=== PATIENT | female | born 1985 | race Caucasian/White ===

== ENCOUNTER 2020-01-25 14:54 | Emergency (ER) | payer BC, SELFPAY ==
--- NOTE | 2020-01-25 14:57 | ECG_ITS ---
Measurements Intervals [place] Rate: 79 P: 37 WV: 130 QRS: 23 QRSD: 94 T: 11 QT: 370 QTc: 424 Interpretive Statements SINUS RHYTHM POSSIBLE LEFT ATRIAL ENLARGEMENT BORDERLINE ECG Electronically Signed On 01-25-2020 16:03:49 CDT by Ady Milton D.O.
[2020-01-25 15:03] VITALS: BP 136/75; PULSE 100; RESP 18; TEMP 37.1; O2SAT 99
[2020-01-25 16:03] LABS: Basophils Percent Auto 0.3 % (0.2-1.2); Eosinophils Absolute Auto 0.2 K/mm3 (0-0.3); Eosinophils Percent Auto 1.3 % (0-4.4); Hemoglobin 11.9 g/dL (12.0-15.0); Immature Granulocyte Absolute 0.15 K/mm3 (0.00-0.031); Immature Granulocyte Percent A 1.3 % (0-0.5); Lymphocytes Absolute Auto 1.77 K/mm3 (0.9-3.2); Lymphocytes Percent Auto 15.3 % (18.3-44.2); Mean Corpuscular Hemoglobin 29.7 pg (26-34); Mean Corpuscular Volume 87.3 fl (80-100); Mean Platelet Volume 11.8 fl (7.4-10.4); Monocytes Absolute Auto 0.8 K/mm3 (0.1-0.6); Monocytes Percent Auto 6.9 % (2.6-8.5); Neutrophils Absolute Auto 8.6 K/mm3 (1.3-6.7); Neutrophils Percent Auto 74.9 % (45.5-73.1); Platelet Count Result 199 k/mm3 (150-375); Red Blood Count 4.01 M/mm3 (4.2-5.4); White Blood Count 11.6 K/mm3 (4.5-10.0)
[2020-01-25 16:14] LABS: Prothrombin Time 13.2 Seconds (11.1-14.7)
[2020-01-25 16:15] LABS: Partial Thromboplastin Time 28.2 SECONDS (22.3-36.8)
[2020-01-25 16:18] LABS: Anion Gap 11.8 mmol/L (7-16); Blood Urea Nitrogen 9 mg/dL (7-17); Calcium 8.8 mg/dL (8.4-10.2); Carbon Dioxide 24 mmol/L (22-30); Chloride 104 mmol/L (98-107); Estimated CRCL calculation 148 ml/min; Estimated Glomerular Filt Rate > 60; Glucose 124 mg/dL (65-105); Potassium 3.8 mmol/L (3.4-5.0); Sodium 136 mmol/L (137-145)
[2020-01-25 16:28] LABS: Troponin I < 0.012 ng/mL (0.000-0.034)
--- NOTE | 2020-01-25 16:29 | ED.GENADULT ---
HPI - General Adult General Chief complaint: Arrhythmia/Palpitations Stated complaint: palpitations Time Seen by Provider: 01/25/20 15:41 Source: patient and family History of Present Illness HPI narrative: 34 years old white female, 22 weeks , history of depression on sertraline which upgraded 1 week ago presents to the ED with intermittent shortness of breath, palpitation, pounding heartbeat, dizziness and lightheadedness for the last month got worse lately. 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 Patient denies any vaginal bleeding or discharge, currently patient feeling okay Related Data Home Medications Medication Instructions Recorded Confirmed PNV cmb#95-ferrous fumarate-FA 1 tablet PO DAILY 01/25/20 01/25/20 [] aspirin [Adult Low Dose Aspirin] 81 mg PO DAILY 01/25/20 01/25/20 sertraline 100 mg PO 01/25/20 Allergies Allergy/AdvReac Type Severity Reaction Status Date / Time clavulanic acid Allergy Intermediate HIVES Verified 01/25/20 15:07 amoxicillin Allergy Unknown Hives / Verified 01/25/20 15:07 Red Face Penicillins Allergy Unknown RASH,HIVES Unverified 01/25/20 15:07 Review of Systems Review of Systems: Narrative: CONSTITUTIONAL: Denies fever, chills, or sweats. EYES: Denies visual changes, redness, or discharge. ENT: Denies rhinorrhea, congestion, sore throat, or otalgia. CARDIOVASCULAR: Denies chest pain, palpitations, or edema. RESPIRATORY: Denies cough or dyspnea. GASTROINTESTINAL: Denies abdominal pain, nausea, vomiting, or diarrhea. GENITOURINARY: Denies dysuria or hematuria. SKIN: Denies rash or itching. MUSCULOSKELETAL: Denies back pain, joint pain, or myalgia. NEUROLOGIC: Denies headache, numbness, or weakness. PSYCHIATRIC: Denies anxiety or depression. PMFSH Social History Social History Gender identity (if verbalized by the patient): Female Exam Narrative: Exam Narrative: General appearance: Well-developed, well-nourished Skin: Normal color Head: Normocephalic, nontraumatic Eyes: Clear conjunctiva ENT: Oropharynx normal, ears normal, nose normal Neck: Supple, nontender Chest and respiratory: Airway patent, no respiratory distress, no accessory muscle use Heart: Regular rate/rhythm Abdomen: Soft, nontender, no organomegaly, quiet bowel sounds Vascular: Normal peripheral pulses, normal capillary refill. Musculoskeletal: Normal range of motion, nontender back Neurologic: Alert and oriented ?3, [employer] is normal as tested, no gross motor deficit Course Course Emergency Course: Stable Vital Signs Vital signs: Vital Signs Temperature 37.1 C 01/25/20 15:03 Pulse Rate 100 01/25/20 15:03 Respiratory Rate 18 01/25/20 15:03 Blood Pressure 136/75 01/25/20 15:03 Pulse Oximetry 99 01/25/20 15:03 Temperature 37.1 C 01/25/20 15:03 Pulse Rate 90 01/25/20 16:41 Respiratory Rate 18 01/25/20 15:03 Blood Pressure 113/69 01/25/20 16:41 Pulse Oximetry 99 01/25/20 15:03 Medical Decision Making [facility] Narrative Medical decision making narrative: Anxiety, panic attack is my concern. Labs, UA, orthostatic blood pressure ordered. Further plan to follow Differential Diagnosis Differential Diagnosis: Electrolyte imbalance, anxiety, depression, Vital Signs Vital Signs: Vital Signs Temperature 37.1 C 01/25/20 15:03 Pulse Rate 100 01/25/20 15:03 Respiratory Rate 18 01/25/20 15:03 Blood Pressure 136/75 01/25/20 15:03 Pulse Oximetry 99 01/25/20 15:03 Temperature 37.1 C 01/25/20 15:03 Pulse Rate 90 07
[2020-01-25 16:39] VITALS: BP 116/61; BP 117/62; PULSE 82; PULSE 87
[2020-01-25 16:41] VITALS: BP 113/69; PULSE 90
== END 2020-01-25 17:12 | disposition home or self-care (01) ==
PROVIDERS: Emergency Medicine; Emergency Provider Emergency Medicine; PCP Family Medicine
DX: O99.342 Other mental disorders complicating pregnancy, second trimester (principal); F41.9 Anxiety disorder, unspecified; Z3A.22 22 weeks gestation of pregnancy
CPT/HCPCS: 36415; 80048; 84484; 85025; 85610; 85730; 93005; 99284

== ENCOUNTER 2020-03-08 15:32 | Outpatient (RCR) | payer BC, SELFPAY ==
[2020-03-09] MEDS: RHO(D) IMMUNE GLOBULIN 300 MCG SYRINGE IM (15:40)
== END 2020-06-06 23:59 | disposition home or self-care (01) ==
LOC: ANHLAB 15:32
PROVIDERS: PCP Family Medicine; Visit Provider Obstetrics & Gynecology
DX: Z29.13 Encounter for prophylactic Rho(D) immune globulin (principal); O36.0990 Maternal care for other rhesus isoimmunization, unspecified trimester, not applicable or unspecified; Z3A.00 Weeks of gestation of pregnancy not specified
CPT/HCPCS: 36415; 85461; 90384; 96372; J2790

== ENCOUNTER 2020-03-22 13:42 | Outpatient (RCR) | payer BC, SELFPAY | END 2020-06-01 16:10 | disposition home or self-care (01) | LOC: ANHDMC 13:42 | PROVIDERS: PCP Family Medicine; Visit Provider Obstetrics & Gynecology | DX: O24.410 Gestational diabetes mellitus in pregnancy, diet controlled (principal); Z3A.00 Weeks of gestation of pregnancy not specified; Z71.89 Other specified counseling | CPT/HCPCS: G0108 ==

== ENCOUNTER 2020-04-19 17:13 | Observation (INO) | payer BC, SELFPAY ==
[2020-04-19 17:48] VITALS: BP 141/93; PULSE 96
[2020-04-19 18:00] VITALS: TEMP 36.9
[2020-04-19 18:03] VITALS: BP 135/71; PULSE 90
[2020-04-19 18:41] LABS: Basophils Percent Auto 0.3 % (0.2-1.2); Eosinophils Absolute Auto 0.1 K/mm3 (0-0.3); Eosinophils Percent Auto 0.8 % (0-4.4); Immature Granulocyte Absolute 0.08 K/mm3 (0.00-0.031); Immature Granulocyte Percent A 0.8 % (0-0.5); Immature Platelet Fraction Pct 14.6 % (0.9-11.2); Lymphocytes Absolute Auto 1.74 K/mm3 (0.9-3.2); Lymphocytes Percent Auto 17.1 % (18.3-44.2); Mean Corpuscular HGB Conc 32.3 g/dl (32-36); Mean Corpuscular Hemoglobin 27.9 pg (26-34); Mean Corpuscular Volume 86.6 fl (80-100); Mean Platelet Volume 13.2 fl (7.4-10.4); Monocytes Percent Auto 9.8 % (2.6-8.5); Neutrophils Absolute Auto 7.3 K/mm3 (1.3-6.7); Neutrophils Percent Auto 71.2 % (45.5-73.1); Platelet Count Result 197 k/mm3 (150-375); Red Blood Count 3.58 M/mm3 (4.2-5.4); White Blood Count 10.2 K/mm3 (4.5-10.0)
--- NOTE | 2020-04-19 18:42 | LDADM ---
This patient, Ellen Valentin, was admitted to OB Post [facility] on 04/19/20 at 17:13. Plans for labor, pain management and were discussed with patient. Patient/family oriented to hospital policies and general routines including ID bracelet, bed and alarms, visiting hours, pain management, procedures, bathroom and other care routines, personal items, smoking policy, room service/diet and guest tray routines, infant security routines, call light, and visiting hours. Patient/Family are encouraged to report perceived risks to care and to ask questions if they do not understand what they are told or what they should do. See OBIX for further documentation.
[2020-04-19 18:45] LABS: Add Urine Microscopic? YES; Appearance Urine Cloudy (Clear); Bacteria Urine Trace /hpf; Bilirubin Urine Negative (Negative); Blood Urine 2+ (Negative); Calcium Oxalate Crystals Urine Present /hpf; Color Urine Yellow (Yellow); Glucose Urine UA Negative (Negative); Ketones Urine Negative (Negative); Leukocyte Esterase Ur 3+ LEU/UL (Negative); Mucus Urine Few /lpf; Nitrate Urine Negative (Negative); Protein Urine 1+ mg/dL (Negative); RBC Urine >75 /hpf (0-2); Specific Grav Ur 1.027 (1.001-1.035); Squamous Epithelial Cell Urine Many /hpf (Few); Urobilinogen Urine Negative mg/dL (<2.0)
[2020-04-19 18:50] LABS: Alanine Aminotransferase 65 U/L (4-35); Albumin Level 3.1 g/dL (3.5-5.1); Alkaline Phosphatase 148 U/L (38-126); Anion Gap 6 mmol/L (8-16); Aspartate Amino Transferase 43 U/L (14-36); Bilirubin,Total 0.4 mg/dL (0.2-1.3); Blood Urea Nitrogen 10 mg/dL (7-17); Carbon Dioxide 26 mmol/L (22-30); Chloride 103 mmol/L (98-107); Estimated Glomerular Filt Rate > 60; Glucose 138 mg/dL (65-105); Potassium 3.7 mmol/L (3.4-5.0); Sodium 135 mmol/L (137-145); Uric Acid 5.4 mg/dL (2.5-7.5)
[2020-04-19] MEDS: NITROFURANTOIN MONOHYD MACROCR 100 MG CAP PO (19:49)
--- NOTE | 2020-04-23 16:12 | P.PNOB_ITS ---
OB - Triage/Final Diagnosis Visit Information Reason for evaluation: threatened labor Evaluation Laboratory results: Laboratory Tests 04/19/20 04/19/20 04/19/20 18:11 18:11 18:11 WBC 10.2 H RBC 3.58 L Hgb 10.0 L Hct 31.0 L MCV 86.6 MCH 27.9 MCHC 32.3 RDW 14.0 Plt Count 197 MPV 13.2 H Immature Gran % (Auto) 0.8 H Neut % (Auto) 71.2 Lymph % (Auto) 17.1 L [place] % (Auto) 9.8 H Eos % (Auto) 0.8 Baso % (Auto) 0.3 Lymph # (Auto) 1.74 [place] # (Auto) 1.0 H Eos # (Auto) 0.1 Baso # (Auto) 0.0 Abs Immat Gran (auto) 0.08 H Absolute Neuts (auto) 7.3 H Absolute Nucleated RBC 0.0 Nucleated RBC % 0.0 % Immature Plt Fraction 14.6 H Sodium 135 L Potassium 3.7 Chloride 103 Carbon Dioxide 26 Anion Gap 6 L BUN 10 Creatinine 0.70 Estim Creat Clear Calc Not Reportable Estimated GFR > 60 Glucose 138 H Uric Acid 5.4 Calcium 9.0 Total Bilirubin 0.4 AST 43 H ALT 65 H Alkaline Phosphatase 148 H Total Protein 6.0 L Albumin 3.1 L Urine Color Yellow Urine Appearance Cloudy H Urine pH 6.0 Ur Specific [place] 1.027 Urine Protein 1+ H Urine Glucose (UA) Negative Urine Ketones Negative Ur Blood (Man) 2+ H Urine Nitrate Negative Urine Bilirubin Negative Urine Urobilinogen Negative Leukocyte Esterase Rfl 3+ H Urine RBC >75 H Urine WBC 10-15 H Ur Squamous Epith Cells Many H Calcium Oxalate Crystal Present Urine Bacteria Trace Urine Mucus Few H
== END 2020-04-19 20:10 | disposition home or self-care (01) ==
PROVIDERS: Admitting Provider Obstetrics & Gynecology; PCP Family Medicine; Visit Provider Obstetrics & Gynecology
DX: O47.03 False labor before 37 completed weeks of gestation, third trimester (principal); Z3A.34 34 weeks gestation of pregnancy
CPT/HCPCS: 36415; 59025; 80053; 81001; 84550; 85025; 85055; 87086; A9270; G0378; G0379

== ENCOUNTER 2020-05-01 14:14 | Outpatient (RCR) | payer BC, SELFPAY ==
[2020-04-03 17:56] VITALS: BP 131/73; PULSE 91
[2020-04-10 15:55] VITALS: BP 129/68; PULSE 92
[2020-04-17 15:38] VITALS: BP 122/75; PULSE 88
[2020-04-23 16:10] VITALS: BP 135/78; PULSE 96
--- NOTE | ~2020-05-01 | US_ITS ---
EXAMINATION: US OB follow up w [facility] DATE: 04/03/2020 17:21 INDICATION: Gestational diabetes, third trimester TECHNIQUE: Real-time pelvic ultrasound was performed. The interpreting radiologist was not present fo r the study. COMPARISON: None FINDINGS: There is a single living fetus in vertex presentation. The placenta is fundal/posterior. heart rate is 131 beats per minute (bpm). The amniotic fluid index is 27.1 cm which is normal (normal range : 8.6 cm to 24.2 cm). Biophysical profile performed by the technologist: breathing (30 sec sustained breathing in 30 minutes): 2 out of 2 movement (3 gross body movements in 30 minutes): 2 out of 2 tone (one episode of omnnbeq-oiqekiiqf-wdaglav limb movement): 2 out of 2 Amniotic fluid pocket (2 cm): 2 out of 2 Total score: 8 out of 8 The following biometric data were obtained: Biparietal diameter (BPD): 8.5 cm; head circumference (HC): 31.4 cm; abdominal circumference (AC): 28 .8 cm; femur length (FL): 6.5 cm. These measurements are concordant. Estimated weight is 2209 g +/- 331 g, which correlates with the 74th percentile when 05/26/2020 is used as estimated date of delivery. As single measurements, these parameters are each equal to the following estimated gestational ages w ith ranges of +/- 2 standard deviations: BPD: 34 weeks 2 days +/- 3 weeks 1 days. HC: 35 weeks 2 days +/- 3 weeks 0 days. AC: 32 weeks 6 days +/- 3 weeks 0 days. FL: 33 weeks 5 days +/- 3 weeks 0 days. estimated gestational age based solely on measurements from this exam is 34 weeks 0 days +/- 2 weeks 3 days. IMPRESSION: 1. Single living fetus in vertex presentation. 2. Biophysical profile 8 out of 8. 3. Polyhydramnios. 4. Estimated weight is 2209 g +/- 331 g, which correlates with the 74th percentile when 020 is used as estimated date of delivery. Reviewed, dictated and finalized at location A. IMPRESSION: 1. Single living fetus in vertex presentation. 2. Biophysical profile 8 out of 8. 3. Polyhydramnios. 4. Estimated weight is 2209 g +/- 331 g, which correlates with the 74th p ercentile when 05/26/2020 is used as estimated date of delivery.
[2020-05-01 14:38] VITALS: BP 134/78; PULSE 75
== END 2020-05-10 07:40 | disposition home or self-care (01) ==
LOC: ANHOBOP 14:14
PROVIDERS: PCP Family Medicine; Visit Provider Obstetrics & Gynecology
DX: O24.419 Gestational diabetes mellitus in pregnancy, unspecified control (principal); O40.3XX0 Polyhydramnios, third trimester, not applicable or unspecified; Z3A.32 32 weeks gestation of pregnancy; Z3A.33 33 weeks gestation of pregnancy; Z3A.34 34 weeks gestation of pregnancy; Z3A.35 35 weeks gestation of pregnancy; Z3A.36 36 weeks gestation of pregnancy
CPT/HCPCS: 59025; 76816; 76819

== ENCOUNTER 2020-05-08 15:18 | Outpatient (CLI) | payer BC, SELFPAY ==
[2020-05-08 15:51] LABS: Hematocrit 33.5 % (37.0-47.0); Hemoglobin 10.8 g/dL (12.0-15.0); Immature Platelet Fraction Pct 17.2 % (0.9-11.2); Mean Corpuscular HGB Conc 32.2 g/dl (32-36); Mean Corpuscular Hemoglobin 27.6 pg (26-34); Mean Corpuscular Volume 85.5 fl (80-100); Mean Platelet Volume 13.6 fl (7.4-10.4); Platelet Count Result 199 k/mm3 (150-375); Red Blood Count 3.92 M/mm3 (4.2-5.4); White Blood Count 11.3 K/mm3 (4.5-10.0)
[2020-05-09 07:36] LABS: Rapid Plasma Reagin Non-Reactive (NonReactive)
== END 2020-05-08 15:19 | disposition home or self-care (01) ==
LOC: ANHLAB 15:19
PROVIDERS: PCP Family Medicine; Visit Provider Obstetrics & Gynecology
DX: Z34.93 Encounter for supervision of normal pregnancy, unspecified, third trimester (principal); Z3A.00 Weeks of gestation of pregnancy not specified
CPT/HCPCS: 36415; 85027; 85055; 86592; 86850; 86900; 86901

== ENCOUNTER 2020-05-09 09:51 | Inpatient (IN) | payer BC, SELFPAY ==
--- NOTE | 2020-05-01 14:04 | PC.NURSE ---
PATIENT STATES SHE IS GOING TO HAVE A REPEAT C/S. PATIENT STATES DR LEVY SAID IT WOULD BE ON 05/08/20.. C/S NOT ON SURGERY SCHEDULE AT TIME OF PRE-ADMIT PATIENT GIVEN REQUISITION FOR PRE-OP LAB DRAWN DAY BEFORE SURGERY PATIENT INSTRUCTED TO BE IN OB 2 HOURS BEFORE SURGERY TIME AND NOTHING BY MOUTH AFTER MIDNIGHT THE NIGHT BEFORE SURGERY--PATIENT VERBALIZED HER UNDERSTANDING
[2020-05-09] VITALS (45 sets, daily range): BP systolic 82–139; BP diastolic 47–113; PULSE 54–92; RESP 14–20; TEMP 36.2–36.8; O2SAT 96–100; BMI 45.8
--- NOTE | 2020-05-09 10:45 | LDADM ---
This patient, Ellen Valentin, was admitted to Labor/Delivery/Recovery 120 on 05/09/20 at 09:51. Plans for labor, pain management and were discussed with patient. Patient/family oriented to hospital policies and general routines including ID bracelet, bed and alarms, visiting hours, pain management, procedures, bathroom and other care routines, personal items, smoking policy, room service/diet and guest tray routines, infant security routines, and visiting hours. Patient/Family are encouraged to report perceived risks to care and to ask questions if they do not understand what they are told or what they should do. See OBIX for further documentation.
--- NOTE | 2020-05-09 10:47 | WPDANESEPPF ---
Anes - Initial Pre Proc Eval Procedure: Operation Date: 05/09/20 12:00 Proposed Procedures p Repeat Section - David Wolf MD Date/Time: 05/09/20 10:47 Surgeon: David Wolf MD Pre Op Diagnosis: Repeat C Section Patient Data Age: 34 Gender: F Height: Weight: Last Vital Signs Pulse 92 05/09/20 10:31 BP 129/87 05/09/20 10:31 Allergies Allergy/AdvReac Type Severity Reaction Status Date / Time clavulanic acid Allergy Intermediate HIVES Verified 01/25/20 15:07 amoxicillin Allergy Unknown Hives / Verified 01/25/20 15:07 Red Face Penicillins Allergy Unknown RASH,HIVES Unverified 01/25/20 15:07 Home Medications Medication Instructions Recorded Confirmed Type PNV cmb#95-ferrous fumarate-FA 1 tablet PO DAILY 01/25/20 04/19/20 History [] sertraline 100 mg PO DAILY 01/25/20 04/19/20 History glyburide 2.5 mg PO DAILY 05/01/20 05/01/20 History Patient hx anesthesia problems: none Family hx anesthesia problems: none PMFSH Past Medical History Medical History Asthma Depression Diabetes Family History Family History Father Type 2 diabetes mellitus Mother Pre-diabetes High cholesterol Grandparent Cancer Sibling Asthma Social History Social History Substance use: never Gender identity (if verbalized by the patient): Female Spiritual care concerns: No Anes - Eval Final PreProcedure Day of Procedure 05/09/20 10:47 Patient weight: obese Heart: regular rate and rhythm Lungs: clear to auscultation Airway: Mallampati scale class II Neurological: alert and oriented Last oral intake: >/= 8 hours ASA classification: III Emergent: no Anesthetic plan: proceed Anesthesia type and monitoring: regional spinal and standard monitoring Informed Consent: The patient's anesthetic plan and its attendant risks and benefits were discussed with the patient/family/POA. Questions were solicited and answers provided to the satisfaction of the patient/family/POA.
[2020-05-09] MEDS: LACTATED RINGERS 1,000 ML 125 ML IV CONT ×2 (11:16→11:51)
--- NOTE | 2020-05-09 11:57 | PM.IMHP ---
H&P: HPI History of Present Illness Date/Time: 05/09/20 11:57 Chief complaint: Repeat C Section Narrative: 34 y/o at 37 4/7 weeks here for scheduled repeat . She has A2DM and has been on glyburide 2.5mg at bedtime. Glycemic control has been OK, but she has a hard time remembering to test regularly. Has had polyhydramnios as well. Review of Systems Review of Systems: All systems reviewed & are unremarkable except as noted in HPI and below PMFSH Past Medical History Medical History (Updated 05/09/20 @ 12:02 by David Wolf MD) Asthma Depression Diabetes Family History Family History Father Type 2 diabetes mellitus Mother Pre-diabetes High cholesterol Grandparent Cancer Sibling Asthma Social History Social History Smoking status: Never smoker Substance use: never Gender identity (if verbalized by the patient): Female Spiritual care concerns: No Meds Home Medications and Allergies Home Medications Medication Instructions Recorded Confirmed Type PNV cmb#95-ferrous fumarate-FA 1 tablet PO DAILY 01/25/20 04/19/20 History [] sertraline 100 mg PO DAILY 01/25/20 04/19/20 History glyburide 2.5 mg PO DAILY 05/01/20 05/01/20 History Allergies Allergy/AdvReac Type Severity Reaction Status Date / Time clavulanic acid Allergy Intermediate HIVES Verified 01/25/20 15:07 amoxicillin Allergy Unknown Hives / Verified 01/25/20 15:07 Red Face Penicillins Allergy Unknown RASH,HIVES Unverified 01/25/20 15:07 Vital Signs Vital Signs - 24 hr 05/09/20 10:30 05/09/20 10:31 Pulse Rate 91 92 Blood Pressure 133/111 H 129/87 Exam Const: Orientation/consciousness: patient oriented x3 Other: Well-developed, well-nourished female in no acute distress. Neck: Thyroid: thyroid normal Lymphatic: no lymphadenopathy noted (in neck, axilla or inguinal nodes) Resp: Effort & Inspection: normal respiratory effort Auscultation: clear to auscultation bilaterally Cardio: Rate: regular rate Rhythm: regular rhythm Heart sounds: S1 normal heart sound present and S2 normal heart sound present GI: Other: ABD: Soft, nontender, nondistended, gravid. Vertex. NST reactive. TOCO: no contractions. : General: Yes no CVA tenderness Other: Cervix closed, thick Back/Spine/Pelvis: Back: no CVA tenderness Skin: General skin exam: normal color and no rashes or lesions noted Neuro: General: patient oriented x3 Extrem: Other: Extremities: nontender with no edema Psych: Mental Status: mental status grossly normal Affect: normal affect Assessment and Plan Assessment and plan (1) History of delivery: Code(s): Z98.891 - History of uterine scar from previous surgery Status: Acute Assessment and Plan: I offered her a repeat . Reviewed risks associated with prematurity. She understands risks of surgery to include risks of anesthesia, risks of pain, infection, bleeding, blood products, thromboembolic phenomena and damage to adjacent structures such as bowel, bladder, ureters, blood vessels and nerves. She understands all these risks and elects to proceed with repeat . (2) Gestational diabetes mellitus (GDM): Code(s): O24.419 - Gestational diabetes mellitus in , unspecified control Status: Acute (3) Polyhydramnios affecting : Code(s): O40.9XX0 - Polyhydramnios, unspecified trimester, not applicable or unspecified Status: Acute
--- NOTE | 2020-05-09 12:02 | WPDHPUPDATE1 ---
History and Physical Update Update Date/Time: 05/09/20 12:02 History and Physical has been reviewed, including an updated exam of the patient. There are NO changes in the patient's condition. Risks, benefits, and alternatives have been discussed and questions answered. Patient agrees to proceed with procedure.
[2020-05-09] MEDS: ceFAZolin 3 GM/D5W 100 ML 100 ML IVPB (12:03)
[2020-05-09 12:07] LABS: Glucose Point of Care 77 (65-105)
--- NOTE | 2020-05-09 13:26 | P.PCNOB_ITS ---
OB - Delivery Note Procedure Delivery date: 05/09/20 Procedure: Procedures Operation Date: 05/09/20 12:00 <No data on this case meets the specified criteria> Repeat low transverse delivery Delivery monitor: external FHT and external uterine Specimen: Yes (cord blood, placenta) Estimated blood loss (mL): 505 Anesthesia type: Spinal Disposition: PACU Complications: None Narrative: The patient was taken to the operating room where she was prepared and draped in the usual sterile fashion in dorsal supine position with a leftward tilt. She received cefazolin preoperatively. Spinal anesthesia was found to be adequate. A Pfannenstiel skin incision was made along the previous scar line and was carried through to the underlying layer of the fascia. The fascia was incised in the midline and the incision was extended laterally. The fascia was dissected free of the underlying rectus muscles. Dense adhesions were lysed between the anterior serosa of the uterus and the anterior pelvic wall. The rectus muscles were in the midline. The peritoneum was identified, tented up and entered sharply. The peritoneal incision was extended superiorly and inferiorly with good visualization of the bladder. The bladder b lade was placed. The vesicouterine peritoneum was identified, tented up and entered sharply. The incision was extended laterally and the bladder flap was developed. The bladder blade was replaced. The uterus was then incised sharply in a transverse fashion along the lower uterine segment. The incision was extended laterally. The infant's head was delivered atraumatically to the sterile field, followed by the body. The nose and mouth were bulb suctioned. After a delay, the cord was clamped and cut. The infant was handed off the field. Cord blood was collected. The placenta was removed manually and was passed off the field. The uterus was exteriorized and cleared of all clots and debris. The uterine incision was reapproximated using 0 Monocryl in a running, locked fashion. Excellent hemostasis resulted as did excellent reapproximation of the normal anatomy. The uterus was returned the abdomen. The pelvis was irrigated copiously with warmed normal saline. Hemaderm was applied to the bladder flap. Rigorous hemostasis was assured. The fascial layer was reapproximated using 0 Vicryl in a running fashion. The skin was closed with a running, subcuticular stitch of 4 0 Vicryl. Dermaflex was applied externally. Sponge, lap, needle and instrument counts were correct. The patient was taken to the recovery room in stable condition. The went to the nursery in s table condition. I was present and scrubbed the entire procedure. [place] Baby Date of : 05/09/20 Time of : 12:30 Weeks of gestation at delivery: 37 gender: Female Weight (pounds): 8 Weight (ounces): 8 presentation: vertex Placenta delivery description: Manual Removal and Normal Configuration cord vessel description: 3 Vessels score one minute: 9 score five minutes: 9
--- NOTE | 2020-05-09 13:30 | PM.OBDSVD ---
DS: Admitting Diagnosis Admitting Diagnosis Admitting Diagnosis: IUP at 37 4/7 weeks Prior Gestational diabetes Polyhydramnios DS: Discharge Diagnosis Discharge Diagnosis (1) Polyhydramnios affecting : Code(s): O40.9XX0 - Polyhydramnios, unspecified trimester, not applicable or unspecified Status: Acute (2) Gestational diabetes mellitus (GDM): Code(s): O24.419 - Gestational diabetes mellitus in , unspecified control Status: Acute (3) History of delivery: Code(s): Z98.891 - History of uterine scar from previous surgery Status: Acute OB - DS: Summary OB Procedures : None OB Procedures Intrapartum: OB Procedures: : None Peripartum Data Procedures: Procedures Operation Date: 05/09/20 12:00 <No data on this case meets the specified criteria> DS: Data Data Completed and Pending Pending studies at discharge: Pending at discharge 05/09/20 12:31 Surgical [PTH] Routine Labs on day of discharge: Labs from last 24 hours 05/09/20 11:57 POC Capillary Glucose 77 Discharge Plan Discharge Attending physician on discharge: David Wolf Consulting providers: Roman Frank Discharging Clinician: David Wolf Patient Disposition: Home, Self-Care Activity: may shower, may drive after 2 weeks and pelvic rest Diet: regular Wound Care Instructions: incision open to air Discharge Instructions: Education: Mom and Baby Guide Given to: Mother Follow-Up: Call your delivering provider's office for an appointment to be seen in: 4 Weeks Mom and baby should come to the [facility] for the follow-up appointment. Appointment Date/Time: May 14, 2020 at 9:00 am What to expect at your follow-up visit: Blood Pressure Check Physical Assessment Call [phone] if you are unable to keep your appointment time. BREAST CARE: * Wear a snug supportive bra. * For engorgement discomfort: Breast Feeding: * Apply warm moist washcloths * Express milk as needed to relieve engorgement * Wear loose clothing * For sore nipples: * Identify correct latch-on * Apply warm moist washcloths before and after nursing * Air dry nipples after nursing * May apply Lansinoh cream to nipples ABDOMINAL INCISION: (if applicable) * Allow incision to air dry * Do NOT use lotions for powders on your incision * When showering, allow soap and water to run over the incision, but do not wash incision EPISIOTOMY/PERINEAL CARE: * Until bleeding stops, use your niesha bottle after urinating * Change your pad frequently throughout the day *No tub baths until seen by your physician - You may shower ACTIVITY: * Rest as much as possible. * Do not exercise or lift anything heavier than your baby (such as laundry or other children.) * Avoid stairs or driving as much as possible. * Do not put anything into the vagina. No douching, tampons, or sexual activity until seen by physician. NOTIFY PHYSICIAN IF YOU HAVE ANY QUESTIONS OR IF ANY OF THE FOLLOWING SYMPTOMS OCCUR: * If your episiotomy or incision becomes red, swollen, or more painful than what you have experienced in the hospital. * If your vaginal bleeding becomes foul smelling. * If your vaginal bleeding becomes more heavy than a period or if your bleeding changes from pink to bright red. However, you may pass an occasional walnut-sized clot once or twice for the first week . * If you experience a sharp, shooting pain in you calves. * If you discover a hard, reddened area on your breast or if you experience flu-like symptoms. *Temperature of 100.4 or higher DIET: * Eat regular, well-balanced meals. * Drink plenty of fluids daily. If , drink to thirst.Call or return if temperature above 100.4? F, increased abdominal pain, in
[2020-05-09] MEDS: OXYTOCIN 30 UNITS/NS 500 ML 30 UNITS/500 ML BAG 125 UNITS IV CONT (14:00)
[2020-05-09] MEDS: MORPHINE SULFATE (*CRX) 2 MG/ML INJ 3 MG IV PUSH (15:20)
--- NOTE | 2020-05-09 15:26 | PC.NURSE ---
PT arrived on unit via stretcher accompanied by spouse and . PT taken to room 286 and transferred to bed via maxi air without difficulty. PT introductions made and plan of care discussed per post op c section, pain management, daily care activities and breast feeding. Pt oriented to room and surrounding area. Welcome packet reviewed and discussed. PT verbalized understanding of such care.
[2020-05-09] MEDS: DOCUSATE SODIUM 100 MG CAPSULE PO (16:14)
[2020-05-09] MEDS: SIMETHICONE 80 MG TAB.CHEW PO (16:14)
[2020-05-09] MEDS: HYDROcodone/acetaminophen (*CRX) 5-325 MG TABLET 1 TAB PO ×2 (16:15→20:12)
[2020-05-09] MEDS: LANOLIN (LANSINOH) 7.5 GM CREAM 1 APPLIC TOPICAL (16:15)
[2020-05-09] MEDS: SODIUM CHLORIDE 0.9% IV 1,000 ML 999 ML IV CONT (18:43)
[2020-05-09] MEDS: KCL 20 MEQ/D5/0.45% SOD CHL 1,000 ML 125 ML IV CONT (19:19)
[2020-05-09] MEDS: FUROSEMIDE INJ 40 MG/4 ML VIAL 20 MG IV PUSH (20:31)
[2020-05-10] VITALS: BP 124/69; PULSE 90; RESP 18; TEMP 36.9; O2SAT 99
[2020-05-10] MEDS: HYDROcodone/acetaminophen (*CRX) 10-325 MG TABLET 1 TAB PO ×3 (00:28→19:12)
[2020-05-10 04:00] VITALS: BP 134/60; PULSE 88; RESP 18; TEMP 37; O2SAT 100
[2020-05-10 04:49] LABS: Basophils Percent Auto 0.3 % (0.2-1.2); Eosinophils Absolute Auto 0.1 K/mm3 (0-0.3); Eosinophils Percent Auto 0.7 % (0-4.4); Hematocrit 24.7 % (37.0-47.0); Hemoglobin 7.9 g/dL (12.0-15.0); Immature Granulocyte Absolute 0.03 K/mm3 (0.00-0.031); Immature Granulocyte Percent A 0.4 % (0-0.5); Lymphocytes Absolute Auto 1.18 K/mm3 (0.9-3.2); Lymphocytes Percent Auto 15.5 % (18.3-44.2); Mean Corpuscular Hemoglobin 27.7 pg (26-34); Mean Corpuscular Volume 86.7 fl (80-100); Mean Platelet Volume 13.4 fl (7.4-10.4); Monocytes Absolute Auto 0.8 K/mm3 (0.1-0.6); Monocytes Percent Auto 9.9 % (2.6-8.5); Neutrophils Absolute Auto 5.6 K/mm3 (1.3-6.7); Neutrophils Percent Auto 73.2 % (45.5-73.1); Platelet Count Result 141 k/mm3 (150-375); Red Blood Count 2.85 M/mm3 (4.2-5.4); White Blood Count 7.6 K/mm3 (4.5-10.0)
[2020-05-10 08:05] VITALS: BP 131/73; PULSE 88; RESP 18; TEMP 36.5; O2SAT 100
[2020-05-10] MEDS: MULTIVIT/MIN/PREN/FOL AC/IRON TABLET 1 TAB PO (09:01)
[2020-05-10] MEDS: DOCUSATE SODIUM 100 MG CAPSULE PO ×2 (09:02→16:10)
[2020-05-10] MEDS: POLYSACCHARIDE IRON COMPLEX 150 MG CAPSULE PO ×2 (09:02→16:10)
[2020-05-10] MEDS: IBUPROFEN 600 MG TABLET PO ×2 (09:02→16:11)
[2020-05-10] MEDS: HYDROcodone/acetaminophen (*CRX) 5-325 MG TABLET 1 TAB PO ×2 (09:02→16:10)
[2020-05-10] MEDS: SERTRALINE HCL 50 MG TABLET PO (09:02)
--- NOTE | 2020-05-10 09:44 | WPDANLDPN2 ---
Anes-Prog Note L&D Date/Time: 05/10/20 09:44 Comfortable throughout: section Neuraxial method: spinal Epidural/Spinal procedure site: clean & non-tender Neuro status: Neuro function grossly intact. Cardiovascular status: normal Respiratory status: normal Airway patency: baseline Mental status: baseline Post-Op hydration status: normal Vital Signs: Last Vital Signs Temp 36.5 C 05/10/20 08:05 Pulse 88 05/10/20 08:05 Resp 18 05/10/20 08:05 BP 131/73 05/10/20 08:05 Pulse Ox 100 05/10/20 08:05 Pain score (VAS): 0 I/O: Intake & Output 05/09/20 05/10/20 05/10/20 23:59 07:59 15:59 Intake Total 2200 1800 Output Total 100 2350 Balance 2100 -550 Post-procedural complaints: none Patient feedback: Patient satisfied with anesthetic care.
--- NOTE | 2020-05-10 09:45 | WPDANLDNPN2 ---
Anes-Prog Note L&D-Neuraxial Date/Time: 05/10/20 09:45 Neuraxial medications: intrathecal PF morphine Opiod-related complaints: none Patient feedback: Patient satisfied with post-operative pain management.
[2020-05-10 11:40] VITALS: BP 126/65; PULSE 94; RESP 18; TEMP 36.8; O2SAT 100
--- NOTE | 2020-05-10 12:15 | PC.NURSE ---
Consulted with patient, mother reports infant has been sleepy at times. Mother reports tenderness at times with some feedings. Mother pumped and bottle fed with first child. . Reviewed infant feeding cues, frequencies, duration of feedings, feeding elimination flow sheet, and signs of adequate intake. Demonstrated stimulation techniques to wake for feeding. Several minutes to wake infant. Small amounts of formula to entice to wake and initiate suckling. Assisted with to breast. Reviewed positioning/alignment in cross cradle, holding breast in U and guided asymmetrical latch on. was able to latch correctly. nursed eagerly for short bursts followed with long pausing occasional swallowing noted. Reviewed signs of a correct latch, effective nursing and suck swallow ratio. was able to maintain latch without discomfort to mother. Nipple care reviewed. Suggested mother stimulate while feeding to keep awake and nursing effectively for increased intake and to assist with maintaining deep latch. Instructed mother to call out for RN assistance if she is unable to latch infant for feeding or she has discomfort with nursing. Instructed feeding should be initiated three hours from start of last feeding or if feeding cues are noted before. Mother voiced understanding of information shared.
--- NOTE | 2020-05-10 13:09 | PM.OBPNVD ---
OB - PN: Subj Subjective Date/time seen: 05/10/20 13:09 Narrative: Pain OK. Tolerating diet. OB - PN: Obj Data Labs CBC & Chem 7: 05/10/20 03:38 Labs: Laboratory Results - last 24 hr 05/10/20 03:38 WBC 7.6 RBC 2.85 L Hgb 7.9 L Hct 24.7 L MCV 86.7 MCH 27.7 MCHC 32.0 RDW 14.0 Plt Count 141 L MPV 13.4 H Immature Gran % (Auto) 0.4 Neut % (Auto) 73.2 H Lymph % (Auto) 15.5 L [place] % (Auto) 9.9 H Eos % (Auto) 0.7 Baso % (Auto) 0.3 Lymph # (Auto) 1.18 [place] # (Auto) 0.8 H Eos # (Auto) 0.1 Baso # (Auto) 0.0 Abs Immat Gran (auto) 0.03 Absolute Neuts (auto) 5.6 Absolute Nucleated RBC 0.0 Nucleated RBC % 0.0 % Immature Plt Fraction 12.0 H OB - PN A/P Plan Comments: A: POD#1, doing well. P: Routine care. Exam Narrative: Exam Narrative: AVSS I/O OK ABD soft, nontender, fundus firm. Incision c/d/i. EXT nontender
[2020-05-10] MEDS: SIMETHICONE 80 MG TAB.CHEW PO (16:10)
[2020-05-10 20:00] VITALS: BP 140/75; PULSE 95; RESP 16; TEMP 36.8; O2SAT 100
[2020-05-11] MEDS: HYDROcodone/acetaminophen (*CRX) 5-325 MG TABLET 1 TAB PO (04:17)
[2020-05-11] MEDS: IBUPROFEN 600 MG TABLET PO ×3 (04:17→19:21)
[2020-05-11] MEDS: MULTIVIT/MIN/PREN/FOL AC/IRON TABLET 1 TAB PO (07:18)
[2020-05-11] MEDS: SIMETHICONE 80 MG TAB.CHEW PO ×2 (07:18→19:21)
[2020-05-11] MEDS: POLYSACCHARIDE IRON COMPLEX 150 MG CAPSULE PO ×2 (07:18→17:15)
[2020-05-11] MEDS: DOCUSATE SODIUM 100 MG CAPSULE PO ×2 (07:18→17:15)
[2020-05-11] MEDS: HYDROcodone/acetaminophen (*CRX) 10-325 MG TABLET 1 TAB PO (07:18)
[2020-05-11 08:05] VITALS: BP 128/73; PULSE 91; RESP 16; TEMP 36.6; O2SAT 100
--- NOTE | 2020-05-11 12:31 | P.PNOB_ITS ---
OB - PN: Subj Subjective Date/time seen: 05/11/20 08:45 Narrative: She says the [place] doesn't seem to be doing anything. Tolerating diet. OB - PN: Obj Data Labs CBC & Chem 7: 05/10/20 03:38 OB - PN A/P Plan Comments: A: POD#2, doing well. P: Try Percocet instead of [place]. Routine care. Exam Narrative: Exam Narrative: AVSS ABD soft, nontender, fundus firm. Incision c/d/i. EXT nontender
--- NOTE | 2020-05-11 12:45 | PC.NURSE ---
Consulted with patient, mother reports she has had difficulties with latching and pain with feedings. Mother states she is able to latch with a deep latch using the football and struggles with cross cradle. Infant has been under bili lights and mother feels is struggling with latching. Advised if mother is more comfortable with football she does not need to use cross cradle. Mother would like to try. Reviewed feeding cues, frequencies, duration of feedings, feeding elimination flow sheet, and signs of adequate intake. Demonstrated stimulation techniques to wake for feeding. Assisted with to breast. Reviewed positioning/alignment in cross cradle, holding breast in U hold and guided asymmetrical latch on. Several attempts before infant was unable to latch correctly. Infant made eager attempts and not able to latch without discomfort to mother. Several positions attempted with positioning infant and mother's breasts. Mother switched to football and is able to latch infant correctly within a few attempts. nursed eagerly, with rhythmic draws draws with frequent swallowing noted. Mother denies discomfort. Reviewed signs signs of a correct latch, effective nursing and suck swallow ratio. Infant was able to maintain latch without discomfort to mother. Nipple care reviewed. Suggested to stimulate infant while feeding to keep awake and nursing effectively for increased intake and to assist with maintaining deep latch. Instructed mother to call out for RN assistance if she is unable to latch infant for feeding or she has discomfort with nursing. Instructed feeding should be initiated three hours from start of last feeding or if feeding cues are noted before. Mother voiced understanding of information shared. Report to primary RN concerning tight frenulum.
[2020-05-11] MEDS: oxyCODONE/ACETAMINOPHEN (*CRX) 5-325 MG TABLET 1 TABLET PO ×3 (13:13→21:53)
[2020-05-11] MEDS: SERTRALINE HCL 50 MG TABLET PO (13:16)
[2020-05-11 19:20] VITALS: BP 143/74; PULSE 87; RESP 16; TEMP 36.8; O2SAT 100
--- NOTE | 2020-05-11 20:27 | PC.NURSE ---
Patient to view the discharge video Mother & Baby Care, The First Two Weeks online. Patient was given the opportunity and encouraged to ask questions. Patient verbalized understanding of information shared and has been given the mother/baby guide for home reference.
[2020-05-12] MEDS: IBUPROFEN 600 MG TABLET PO ×2 (06:49→12:55)
[2020-05-12] MEDS: oxyCODONE/ACETAMINOPHEN (*CRX) 5-325 MG TABLET 1 TABLET PO ×2 (06:50→12:54)
[2020-05-12] MEDS: POLYSACCHARIDE IRON COMPLEX 150 MG CAPSULE PO (06:51)
[2020-05-12] MEDS: MULTIVIT/MIN/PREN/FOL AC/IRON TABLET 1 TAB PO (06:51)
[2020-05-12] MEDS: SERTRALINE HCL 50 MG TABLET PO (06:51)
[2020-05-12] MEDS: DOCUSATE SODIUM 100 MG CAPSULE PO (06:52)
[2020-05-12 07:00] VITALS: BP 158/84; PULSE 77; RESP 16; TEMP 36.6; O2SAT 100
--- NOTE | 2020-05-12 07:05 | PM.OBPNVD ---
OB - PN: Subj Subjective Date/time seen: 05/12/20 07:05 Patient comments: no complaints and pain well controlled baby status: doing well OB - PN: Obj Data Labs CBC & Chem 7: 05/10/20 03:38 OB - PN A/P Plan day: 3 Plan: routine care, discharge home and follow up 6 weeks (4 weeks) Time Spent With Patient Time: Total time spent is greater than 50% in coordination of care (as documented) at patient's floor/unit and/or counseling patient: Time with patient: less than 15 minutes Review of Systems Review of Systems: All systems reviewed & are unremarkable except as noted in HPI and below Exam Const: General: no acute distress Eyes: General: appearance normal, both eyes and all related structures Neck: Neck: supple and no JVD Thyroid: thyroid normal Resp: Effort & Inspection: normal respiratory effort Auscultation: clear to auscultation bilaterally Cardio: Rate: regular rate Rhythm: regular rhythm GI: Inspection: normal to inspection and incision (cdi) Percussion: Yes normal to percussion : General: Yes bladder normal to palpation External Female Exam: normal external appearance Speculum Exam - Vagina: normal vaginal discharge and No vaginal bleeding Speculum Exam - Cervix: nontender Bimanual exam- vagina & uterus: bladder normal to palpation and No Cervical tenderness present OB/external & speculum: No vaginal bleeding Skin: General skin exam: no rashes or lesions noted Extrem: General: normal to inspection and no edema Psych: Mental Status: mental status grossly normal Affect: normal affect
[2020-05-14 09:29] VITALS: BP 144/79; PULSE 72; RESP 20; TEMP 36.9; O2SAT 100
== END 2020-05-12 13:37 | disposition home or self-care (01) | DRG 788 ==
LOC: ANHLDR 13:31 → ANHOB2 05-12 12:12 → ANHLDR 05-15 07:54 → ANHOB2 05-15 07:54
PROVIDERS: Admitting Provider Obstetrics & Gynecology; PCP Family Medicine; Visit Provider Obstetrics & Gynecology
PROC: 10D00Z1 Extraction of Products of Conception, Low, Open Approach (ICD-10-PCS; CPT 59514; principal; 2020-05-09 12:00)
DX: O34.211 Maternal care for low transverse scar from previous cesarean delivery (principal); Z37.0 Single live birth; Z3A.37 37 weeks gestation of pregnancy; O24.429 Gestational diabetes mellitus in childbirth, unspecified control; O99.52 Diseases of the respiratory system complicating childbirth; J45.909 Unspecified asthma, uncomplicated; O99.344 Other mental disorders complicating childbirth; F41.8 Other specified anxiety disorders; E66.9 Obesity, unspecified; O99.214 Obesity complicating childbirth; O40.3XX0 Polyhydramnios, third trimester, not applicable or unspecified
CPT/HCPCS: 36415; 85025; 85055; 88307; A9270; J0131; J0690; J1885; J1940; J2270; J2274; J2405; J2590; J3480; J7030; J7120

== ENCOUNTER 2022-03-07 18:20 | Emergency (ER) | payer BC, SELFPAY ==
--- NOTE | ~2022-03-07 | CT_ITS ---
EXAMINATION: CTA chest PE protocol DATE: 03/08/2022 00:42 INDICATION: Dyspnea. Elevated d-dimer. TECHNIQUE: Computed tomography angiography (CTA) of the chest was performed with 100 mL Omnipaque-350 intravenous contrast timed to evaluate the pulmonary arteries. Coronal maximum intensity projection 3D-reconstructions were created by the technologist. Automated exposure control and iterative reconst ruction technique were employed. Exam dose: 695.72 mGy-cm total exam DLP. COMPARISON: 03/17/2022 portable AP chest FINDINGS: Is diagnostic contrast enhancement of the pulmonary arteries and no evidence of pulmonary e mbolism. Lungs are clear of infiltrate or consolidation. Normal heart size. No pericardial or pleural effusion. No thoracic aortic aneurysm or dissection. Normal heart size. No pericardial or pleural effusion. No hilar or mediastinal mass lesion or lymphadenopathy. Included upper abdominal structures and skeletal structures are unremarkable. IMPRESSION: No evidence of pulmonary embolism Reviewed, dictated and finalized at [facility] Reviewed, dictated and finalized at [facility].
--- NOTE | ~2022-03-07 | XR_ITS ---
EXAMINATION: XR chest 1V portable DATE: 03/07/2022 20:11 INDICATION: Shortness of breath. Epigastric pain. Asthma. TECHNIQUE: frontal view of the chest was obtained. COMPARISON: Chest radiograph dated 08/09/2015 FINDINGS: Normal lung volumes. No focal airspace opacities, pulmonary edema, pleural effusion or pneumothorax. The cardiomediastinal silhouette is normal. Visualized bones and soft tissues are unremarkable. IMPRESSION: 1. No acute cardiopulmonary disease. Reviewed, dictated and finalized at [facility].
[2022-03-07 18:29] VITALS: BP 125/67; PULSE 90; RESP 20; TEMP 36.6; O2SAT 99
[2022-03-07 18:56] LABS: Basophils Percent Auto 0.2 % (0.2-1.2); Eosinophils Absolute Auto 0.1 K/mm3 (0-0.3); Eosinophils Percent Auto 0.9 % (0-4.4); Hematocrit 37.9 % (37.0-47.0); Hemoglobin 12.3 g/dL (12.0-15.0); Immature Granulocyte Absolute 0.05 K/mm3 (0.00-0.031); Immature Granulocyte Percent A 0.4 % (0-0.5); Lymphocytes Absolute Auto 2.18 K/mm3 (0.9-3.2); Mean Corpuscular HGB Conc 32.5 g/dl (32-36); Mean Corpuscular Hemoglobin 27.6 pg (26-34); Mean Platelet Volume 10.8 fl (7.4-10.4); Monocytes Absolute Auto 0.7 K/mm3 (0.1-0.6); Monocytes Percent Auto 5.9 % (2.6-8.5); Neutrophils Absolute Auto 8.4 K/mm3 (1.3-6.7); Neutrophils Percent Auto 73.6 % (45.5-73.1); Platelet Count Result 245 k/mm3 (150-375); Red Blood Count 4.46 M/mm3 (4.2-5.4); Red Cell Distribution Width 15.3 % (11.5-14.5); White Blood Count 11.5 K/mm3 (4.5-10.0)
[2022-03-07 18:57] LABS: Appearance Urine Clear (Clear); Bilirubin Urine Negative (Negative); Blood Urine Negative (Negative); Color Urine Yellow (Yellow); Glucose Urine UA Negative (Negative); Ketones Urine Negative (Negative); Leukocyte Esterase Ur Negative LEU/UL (Negative); Nitrate Urine Negative (Negative); Protein Urine Negative (Negative); Specific Grav Ur >= 1.030 (1.001-1.035); Urobilinogen Urine 0.2 mg/dL (<2.0); pH Urine 5.5 (5.0-9.0)
[2022-03-07 19:02] LABS: Add Urine Microscopic? NO
[2022-03-07 19:05] LABS: Alanine Aminotransferase 19 U/L (6-35); Albumin Level 4.2 g/dL (3.5-5.1); Alkaline Phosphatase 67 U/L (38-126); Anion Gap 11 mmol/L (8-16); Aspartate Amino Transferase 18 U/L (14-36); Bilirubin,Total 0.3 mg/dL (0.2-1.3); Blood Urea Nitrogen 13 mg/dL (7-17); Calcium 8.6 mg/dL (8.4-10.2); Carbon Dioxide 23 mmol/L (22-30); Chloride 102 mmol/L (98-107); Estimated CRCL calculation 126 ml/min; Estimated Glomerular Filt Rate > 60; Glucose 124 mg/dL (65-110); Lipase 39 U/L (23-300); Potassium 3.7 mmol/L (3.4-5.0); Sodium 136 mmol/L (137-145)
--- NOTE | 2022-03-07 19:46 | ECG_ITS ---
Measurements Intervals [place] Rate: 82 P: 48 SC: 146 QRS: 46 QRSD: 93 T: 39 QT: 399 QTc: 467 Interpretive Statements SINUS RHYTHM BASELINE ARTIFACT- I, II, AVR NORMAL ECG COMPARED TO ECG 01/25/2020 15:07:07 NO SIGNIFICANT CHANGES Electronically Signed On 03-07-2022 20:40:06 CDT by Ady Milton D.O.
--- NOTE | 2022-03-07 19:48 | ED.ABDPAIN ---
HPI - Abdominal Pain General Chief Complaint: Abdominal Pain Stated Complaint: 8 wks preg, upper abd pain Time Seen by Provider: 03/07/22 19:35 Source: RN notes reviewed History of Present Illness HPI narrative: Patient presents emergency department from home for abdominal pain. Patient states she has had bandlike pain across her upper abdomen going around to her back for the past 3 days. Patient states that the pain is spasming in nature and last for approximately 30 seconds makes her feel short of breath like she cannot take a deep breath. Patient states she is approximately 8 weeks she is G3, P2 is followed by Dr Wolf. States she has had an ultrasound in the office showing a intrauterine she denies any lower abdominal pain she denies any vaginal bleeding or discharge. She denies any fevers or chills chest pain or any other symptoms states she is not taking medication at home for the symptoms Related Data Home Medications Medication Instructions Recorded Confirmed vit no.95-ferrous 1 tablet PO DAILY 01/25/20 04/19/20 fumarate 28 mg-folic acid 800 mcg tablet () sertraline 100 mg tablet 100 mg PO DAILY 01/25/20 04/19/20 Allergies Allergy/AdvReac Type Severity Reaction Status Date / Time clavulanic acid Allergy Intermediate HIVES Verified 03/07/22 19:38 amoxicillin Allergy Unknown Hives / Verified 03/07/22 19:38 Red Face Penicillins Allergy Unknown RASH,HIVES Verified 03/07/22 19:38 Review of Systems Review of Systems: Gen.: Denies fevers or chills ENT: Denies congestion Respiratory: Reports shortness of breath with the pain CV: Denies chest pain or palpitations GI: See HPI reports Musculoskeletal: Denies back pain or muscle pain Neuro: Denies numbness, tingling, weakness or focal weakness Skin: Denies rash Except as documented, all other systems reviewed and negative [facility] Past Medical History Medical History Asthma Depression Diabetes Family History Family History Father Type 2 diabetes mellitus Mother Pre-diabetes High cholesterol Grandparent Cancer Sibling Asthma Social History Social History Smoking status: Never smoker Substance use: never Gender identity (if verbalized by the patient): Female Spiritual care concerns: No Exam Narrative: APPEARANCE: No acute distress, nontoxic, resting in bed HEENT: Normocephalic, atraumatic, OMM RESPIRATORY: No respiratory distress, clear to auscultation bilaterally with no rhonchi wheezing or rales CARDIOVASCULAR: RRR s murmur ABDOMINAL: Soft nondistended tender palpation epigastric and right upper quadrant and left upper quadrant no tenderness right lower quadrant left lower quadrant no rebound or guarding MUSCULOSKELETAl: Moves all extremities. No clubbing, cyanosis or edema. NEURO: Awake and alert. Following commands, speech normal, no focal deficits SKIN:: Warm, dry. Normal Color PSYCHIATRIC: Normal affect/mood Course Course Emergency Course: Patient states pain is improved with GI cocktail : Discussed with Dr. Jeannine Mojica presentation work-up he recommends a D-dimer be obtained and if elevated to get a CTA of the chest if this is negative he feels patient may be discharged home with follow-up as an outpatient Discussed with patient results of workup and diagnosis. Discussed need for follow-up with primary care, proper use of medication, and reasons to return to the emergency department. Patient understands and agrees to current treatment plan discussed with patient need for return for increasing abdominal pain repeat abdominal exam is soft no surgical abdomen present no tenderness in the right lower quadrant left lower quadrant mild tenderness epigastric region Vital Signs Vital signs: Vital Signs Temperature 98 F
[2022-03-07] MEDS: FAMOTIDINE 20 MG/2 ML VIAL IV PUSH (20:01)
[2022-03-07] MEDS: MAG HYDROX/AL HYDROX/SIMETH 30 ML UDC PO (20:01)
[2022-03-07] MEDS: SODIUM CHLORIDE 0.9% IV 1,000 ML 999 ML IV CONT (20:02)
[2022-03-07 23:07] LABS: D Dimer 0.54 ug/mL (<0.48)
[2022-03-07 23:34] VITALS: BP 115/61; PULSE 77; RESP 20; O2SAT 100
== END 2022-03-08 01:48 | disposition home or self-care (01) ==
PROVIDERS: Emergency Medicine; Emergency Provider Emergency Medicine; PCP Obstetrics & Gynecology
DX: O26.891 Other specified pregnancy related conditions, first trimester (principal); R10.13 Epigastric pain; Z3A.08 8 weeks gestation of pregnancy
CPT/HCPCS: 36415; 71045; 71275; 80053; 81003; 83690; 85025; 85380; 93005; 96361; 96374; 96375; 99284; A9270; J0131; J7030; Q9967

== ENCOUNTER 2022-03-08 15:22 | Observation (INO) | payer BC, SELFPAY ==
--- NOTE | ~2022-03-08 | US_ITS ---
US abdomen limited DATE: 03/09/2022 07:21 INDICATION: Epigastric abdominal pain, vomiting TECHNIQUE: Real-time imaging of liver, pancreas, gallbladder COMPARISON: None FINDINGS: The pancreas is largely obscured by bowel gas. No hepatic space-occupying mass lesion is detected. Normal hepatopedal portal venous flow direction. No gallstones or gallbladder wall thickening or pericholecystic fluid collection. Negative sonographi c Vargas's sign. The common bile duct measures 4 mm, normal. IMPRESSION: Pancreas is obscured by bowel gas otherwise negative examination Reviewed, dictated and finalized at [facility] Reviewed, dictated and finalized at [facility].
[2022-03-08 15:35] VITALS: BP 119/72; PULSE 81; RESP 18; TEMP 36.6; O2SAT 99
--- NOTE | 2022-03-08 15:48 | ED.ABDPAIN ---
HPI - Abdominal Pain General Chief Complaint: Abdominal Pain Stated Complaint: abdominal pain with Time Seen by Provider: 03/08/22 15:40 Source: patient Mode of arrival: ambulatory Limitations: no limitations History of Present Illness HPI narrative: This is a 36 year old , about 8 weeks , that presents to the ER for epigastric abdominal pain ongoing over the last couple of days. Reports the pain is intermittent in nature. No known alleviating or exacerbating factors. The pain is sharp in nature. She was evaluated for this yesterday in the ER and discharged with outpatient follow up. Reports another episode of pain today associated with nausea and vomiting. Denies dysuria, hematuria, diarrhea, or vaginal bleeding. Related Data Home Medications Medication Instructions Recorded Confirmed vit no.95-ferrous 1 tablet PO DAILY 01/25/20 04/19/20 fumarate 28 mg-folic acid 800 mcg tablet () sertraline 100 mg tablet 100 mg PO DAILY 01/25/20 04/19/20 Allergies Allergy/AdvReac Type Severity Reaction Status Date / Time clavulanic acid Allergy Intermediate HIVES Verified 03/08/22 15:50 amoxicillin Allergy Unknown Hives / Verified 03/08/22 15:50 Red Face Penicillins Allergy Unknown RASH,HIVES Verified 03/08/22 15:50 Review of Systems Review of Systems: CONSTITUTIONAL: Denies fever CARDIOVASCULAR: Denies chest pain RESPIRATORY: Denies dyspnea. GASTROINTESTINAL: Reports abdominal pain, nausea, vomiting. Denies diarrhea. GENITOURINARY: Denies dysuria or hematuria. All systems reviewed & are unremarkable except as noted in HPI and below PMFSH Past Medical History Medical History (Updated 03/08/22 @ 18:23 by Anabelle Vela PA-C) Asthma Depression Diabetes Surgical History Surgical History (Updated 03/08/22 @ 15:49 by Anabelle Vela PA-C) History of delivery Family History Family History Father Type 2 diabetes mellitus Mother Pre-diabetes High cholesterol Grandparent Cancer Sibling Asthma Social History Social History Smoking status: Never smoker Substance use: never Gender identity (if verbalized by the patient): Female Spiritual care concerns: No Exam Narrative: GENERAL: Well-appearing, well-nourished, and in no acute distress. HEAD: Normocephalic, atraumatic. EYES: EOMI. CHEST: Clear to auscultation. No respiratory distress. No wheezes rales or rhonchi HEART: Regular rate and rhythm. No murmur heard. Normal peripheral pulses. ABDOMEN: Soft, nontender, nondistended, normal active bowel sounds. No CVA tenderness EXTREMITIES: Normal range of motion. No edema. SKIN: Warm, dry, no rash. NEURO: No focal deficits. Alert and oriented x3. PSYCH: Normal mood and affect Course Consultations Consultation #1: Spoke with Dr. Jeannine Mojica about patient and workup. Patient will be kept NPO. US RUQ ordered for the morning. He will evaluate patient in the morning Date: 03/08/22 Time: 18:21 Vital Signs Vital signs: Vital Signs Temperature 97.9 F 03/08/22 15:35 Pulse Rate 81 03/08/22 15:35 Respiratory Rate 18 03/08/22 15:35 Blood Pressure 119/72 03/08/22 15:35 Pulse Oximetry 99 03/08/22 15:35 Temperature 97.9 F 03/08/22 15:35 Pulse Rate 81 03/08/22 15:35 Respiratory Rate 18 03/08/22 15:35 Blood Pressure 119/72 03/08/22 15:35 Pulse Oximetry 99 03/08/22 15:35 MDM - Abdominal Pain MDM Narrative Medical decision making narrative: Patient presents to the emergency department for epigastric pain ongoing over the last 4 days. She is afebrile and nontoxic-appearing. Her vitals are stable. CBC with mild leukocytosis to 11.5. Metabolic panel and lipase without concerning findings. UA without evidence of infection. Patient evaluated in the ED for same yesterday. Also received a CTA PE study without
[2022-03-08 15:53] LABS: Basophils Percent Auto 0.2 % (0.2-1.2); Eosinophils Absolute Auto 0.1 K/mm3 (0-0.3); Hematocrit 36.5 % (37.0-47.0); Hemoglobin 11.8 g/dL (12.0-15.0); Immature Granulocyte Absolute 0.06 K/mm3 (0.00-0.031); Immature Granulocyte Percent A 0.7 % (0-0.5); Lymphocytes Absolute Auto 1.57 K/mm3 (0.9-3.2); Lymphocytes Percent Auto 17.8 % (18.3-44.2); Mean Corpuscular HGB Conc 32.3 g/dl (32-36); Mean Corpuscular Hemoglobin 27.9 pg (26-34); Mean Corpuscular Volume 86.3 fl (80-100); Mean Platelet Volume 10.7 fl (7.4-10.4); Monocytes Absolute Auto 0.6 K/mm3 (0.1-0.6); Monocytes Percent Auto 6.7 % (2.6-8.5); Neutrophils Absolute Auto 6.5 K/mm3 (1.3-6.7); Neutrophils Percent Auto 73.6 % (45.5-73.1); Platelet Count Result 209 k/mm3 (150-375); Red Blood Count 4.23 M/mm3 (4.2-5.4); Red Cell Distribution Width 15.4 % (11.5-14.5); White Blood Count 8.8 K/mm3 (4.5-10.0)
[2022-03-08] MEDS: FAMOTIDINE 20 MG/2 ML VIAL IV PUSH (15:53)
[2022-03-08] MEDS: METOCLOPRAMIDE HCL INJ 10 MG/2 ML VIAL IV PUSH (15:54)
[2022-03-08] MEDS: diphenhydrAMINE HCl INJ 50 MG/ML VIAL 25 MG IV PUSH (15:54)
[2022-03-08] MEDS: SODIUM CHLORIDE 0.9% IV 1,000 ML 999 ML IV CONT (15:54)
[2022-03-08 16:11] LABS: Alanine Aminotransferase 19 U/L (6-35); Albumin Level 3.5 g/dL (3.5-5.1); Alkaline Phosphatase 64 U/L (38-126); Anion Gap 8 mmol/L (8-16); Aspartate Amino Transferase 17 U/L (14-36); Bilirubin,Total 0.2 mg/dL (0.2-1.3); Blood Urea Nitrogen 9 mg/dL (7-17); Calcium 8.5 mg/dL (8.4-10.2); Carbon Dioxide 24 mmol/L (22-30); Chloride 105 mmol/L (98-107); Estimated CRCL calculation 126 ml/min; Estimated Glomerular Filt Rate > 60; Glucose 128 mg/dL (65-110); Lipase 29 U/L (23-300); Potassium 3.7 mmol/L (3.4-5.0); Sodium 137 mmol/L (137-145)
[2022-03-08 17:22] LABS: Bilirubin Urine Negative (Negative); Blood Urine Negative (Negative); Glucose Urine UA Negative (Negative); Ketones Urine Negative (Negative); Leukocyte Esterase Ur Negative LEU/UL (Negative); Nitrate Urine Negative (Negative); Protein Urine Negative (Negative); Specific Grav Ur 1.015 (1.001-1.035); Urobilinogen Urine 0.2 mg/dL (<2.0)
[2022-03-08 17:32] LABS: Bacteria Urine 3+ /hpf; Mucus Urine Rare /lpf; RBC Urine 0-2 /hpf (0-2); Squamous Epithelial Cell Urine Many /hpf (Few); WBC Urine 0-3 /hpf
[2022-03-08 17:35] LABS: Add Urine Microscopic? YES; Appearance Urine Cloudy (Clear); Color Urine Light Yellow (Yellow)
[2022-03-08 18:47] VITALS: BP 122/64; PULSE 69; RESP 18; O2SAT 99
[2022-03-08 19:35] VITALS: BP 128/69; PULSE 82; RESP 16; TEMP 37.1
[2022-03-08 21:00] VITALS: BP 126/54; PULSE 75; RESP 17; TEMP 37
[2022-03-08 21:01] VITALS: BP 115/64; PULSE 74
[2022-03-08] MEDS: DEXTROSE 5%/LACTATED RINGERS 1,000 ML 125 ML IV CONT (21:04)
[2022-03-09] MEDS: HYDROcodone/acetaminophen (*CRX) 5-325 MG TABLET 1 TAB PO (01:33)
[2022-03-09 01:34] VITALS: BP 147/75; PULSE 95
[2022-03-09 01:41] VITALS: RESP 15; TEMP 36.9
[2022-03-09] MEDS: ACETAMINOPHEN 325 MG TABLET 650 MG PO (05:06)
[2022-03-09] MEDS: DEXTROSE 5%/LACTATED RINGERS 1,000 ML 125 ML IV CONT (05:07)
[2022-03-09 05:14] VITALS: BP 116/60; PULSE 74
[2022-03-09 05:15] VITALS: RESP 17; TEMP 37
[2022-03-09 05:19] VITALS: BMI 44.9
[2022-03-09 05:23] LABS: Basophils Percent Auto 0.3 % (0.2-1.2); Eosinophils Absolute Auto 0.1 K/mm3 (0-0.3); Eosinophils Percent Auto 1.5 % (0-4.4); Hemoglobin 10.3 g/dL (12.0-15.0); Immature Granulocyte Absolute 0.03 K/mm3 (0.00-0.031); Immature Granulocyte Percent A 0.4 % (0-0.5); Lymphocytes Absolute Auto 1.85 K/mm3 (0.9-3.2); Lymphocytes Percent Auto 25.9 % (18.3-44.2); Mean Corpuscular HGB Conc 32.2 g/dl (32-36); Mean Corpuscular Hemoglobin 28.1 pg (26-34); Mean Corpuscular Volume 87.2 fl (80-100); Mean Platelet Volume 10.9 fl (7.4-10.4); Monocytes Absolute Auto 0.5 K/mm3 (0.1-0.6); Monocytes Percent Auto 6.7 % (2.6-8.5); Neutrophils Absolute Auto 4.7 K/mm3 (1.3-6.7); Neutrophils Percent Auto 65.2 % (45.5-73.1); Platelet Count Result 171 k/mm3 (150-375); Red Blood Count 3.67 M/mm3 (4.2-5.4); Red Cell Distribution Width 15.3 % (11.5-14.5); White Blood Count 7.1 K/mm3 (4.5-10.0)
[2022-03-09 05:32] LABS: Alanine Aminotransferase 18 U/L (6-35); Alkaline Phosphatase 51 U/L (38-126); Anion Gap 7 mmol/L (8-16); Aspartate Amino Transferase 18 U/L (14-36); Bilirubin,Total 0.2 mg/dL (0.2-1.3); Blood Urea Nitrogen 8 mg/dL (7-17); Calcium 7.9 mg/dL (8.4-10.2); Carbon Dioxide 23 mmol/L (22-30); Chloride 107 mmol/L (98-107); Estimated CRCL calculation 126 ml/min; Estimated Glomerular Filt Rate > 60; Glucose 112 mg/dL (65-110); Lipase 24 U/L (23-300); Potassium 3.6 mmol/L (3.4-5.0); Sodium 137 mmol/L (137-145)
[2022-03-09 05:33] LABS: Amylase < 30 U/L (30-110)
--- NOTE | 2022-03-09 07:28 | PM.IMHP ---
H&P: HPI History of Present Illness Date/Time: 03/09/22 07:28 Chief Complaint: Abdominal pain with an early Narrative: since 36-year-old 3 para 2 in about 8 half weeks with known IUP complaining of abdominal pain. She was seen the day before had a full workup for this abdominal pain receive some Tylenol and a PE was ruled out. She returned 24hours later with again severe pain and normal-appearing labs. Gallbladder scan is pending this morning. Tylenol has seen to be the best thing to help her discomfort although she appears to be in moderate discomfort. Review of Systems Review of Systems: All systems reviewed & are unremarkable except as noted in HPI and below PMFSH Past Medical History Medical History Asthma Depression Diabetes Surgical History Surgical History History of delivery Family History Family History Father Type 2 diabetes mellitus Mother Pre-diabetes High cholesterol Grandparent Cancer Sibling Asthma Social History Social History Smoking status: Never smoker Substance use: never Gender identity (if verbalized by the patient): Female Spiritual care concerns: No Meds Home Medications and Allergies Home Medications Medication Instructions Recorded Confirmed Type vit no.95-ferrous 1 tablet PO DAILY 01/25/20 03/08/22 History fumarate 28 mg-folic acid 800 mcg tablet () sertraline 100 mg tablet 100 mg PO DAILY 01/25/20 03/08/22 History ferrous sulfate 325 mg (65 mg 325 mg PO DAILY #30 tabs 05/11/20 03/08/22 Rx iron) tablet famotidine 20 mg tablet (Pepcid) 20 mg PO DAILY #14 tabs 03/08/22 03/08/22 Rx Allergies Allergy/AdvReac Type Severity Reaction Status Date / Time clavulanic acid Allergy Intermediate HIVES Verified 03/08/22 15:50 amoxicillin Allergy Unknown Hives / Verified 03/08/22 15:50 Red Face Penicillins Allergy Unknown RASH,HIVES Verified 03/08/22 15:50 Vital Signs Vital Signs - 24 hr 03/08/22 15:35 03/08/22 18:47 03/08/22 19:35 Temperature 97.9 F Pulse Rate 81 69 82 Respiratory Rate 18 18 Blood Pressure 119/72 122/64 128/69 Pulse Oximetry 99 99 Oxygen Delivery 03/08/22 21:00 03/08/22 21:01 03/09/22 01:34 Temperature Pulse Rate 75 74 95 Respiratory Rate Blood Pressure 126/54 L 115/64 147/75 H Pulse Oximetry Oxygen Delivery 03/09/22 05:14 03/08/22 19:35 03/08/22 21:00 Temperature 98.7 F 98.6 F Pulse Rate 74 Respiratory Rate 16 17 Blood Pressure 116/60 Pulse Oximetry Oxygen Delivery 03/09/22 01:35 03/09/22 01:41 03/09/22 05:15 Temperature 98.5 F 98.6 F Pulse Rate Respiratory Rate 15 17 Blood Pressure Pulse Oximetry Oxygen Delivery Room Air Exam Const: General: cooperative and healthy appearing Nutritional Appearance: obese Orientation/consciousness: oriented to person, oriented to place and oriented to time HENMT: Head: normal to inspection Chest: Chest palpation & inspection: normal inspection of the chest Resp: Effort & Inspection: normal respiratory effort Cardio: Heart sounds: S1 normal heart sound present and S2 normal heart sound present GI: Inspection: normal to inspection and obesity GI Palp: Yes abdominal tenderness Auscultation: normal bowel sounds H&P: Results Labs Labs: Short CBC 03/08/22 03/09/22 Range/Units 15:47 05:09 WBC 8.8 7.1 (4.5-10.0) K/mm3 Hgb 11.8 L 10.3 L (12.0-15.0) g/dL Hct 36.5 L 32.0 L (37.0-47.0) % Plt Count 209 171 (150-375) k/mm3 BMP 03/08/22 03/09/22 15:47 05:09 Sodium 137 137 Potassium 3.7 3.6 Chloride 105 107 Carbon Dioxide 24 23 BUN 9 8 Creatinine 0.60 L 0.60 L Glucose 128 H 112 H C
[2022-03-09 07:31] VITALS: BP 139/65; PULSE 67
[2022-03-09] MEDS: PANTOPRAZOLE SODIUM IV 40 MG VIAL IV PUSH (09:10)
--- NOTE | 2022-03-09 11:05 | PC.NURSE ---
1044--US reported to Dr Jeannine Mojica. DC orders given with instructions to follow up with Dr Wolf on Thursday03/10/22
--- NOTE | 2022-03-09 13:47 | PM.DS ---
DS: Admitting Diagnosis Discharge Date 03/09/22 Admitting Diagnosis Abdominal pain with 1st trimester DS: Discharge Diagnosis Discharge Diagnosis (1) Acute epigastric pain: Code(s): R10.13 - Epigastric pain Status: Acute (2) : Qualifiers: Weeks of gestation: 8 weeks Qualified Code(s): Z3A.08 - 8 weeks gestation of Code(s): Z34.90 - Encounter for supervision of normal , unspecified, unspecified trimester Status: Acute DS: Summary Hospital Course Reason for hospitalization: abdominal pain Hospital Course: is a 36-year-old 3 para 2 admitted and half weeks gestation and her 2nd day of abdominal pain she underwent a workup in ER which was unremarkable with negative his pancreatic enzymes and liver function tests. Her white count was also normal. She was admitted and underwent ultrasound in the morning was treated symptomatically with GI rest and IV fluids. Her ultrasound was negative and she was discharged home to use Tylenol for pain she is to call Dr. Worthington in the morning for a follow-up visit Time Spent with Patient Time attestation: Total time spent providing and/or coordinating discharge services: DS: Data Data Completed and Pending Labs on day of discharge: Labs from last 24 hours 03/09/22 03/09/22 03/08/22 05:09 05:09 17:16 WBC 7.1 RBC 3.67 L Hgb 10.3 L Hct 32.0 L MCV 87.2 MCH 28.1 MCHC 32.2 RDW 15.3 H Plt Count 171 MPV 10.9 H Immature Gran % (Auto) 0.4 Neut % (Auto) 65.2 Lymph % (Auto) 25.9 [place] % (Auto) 6.7 Eos % (Auto) 1.5 Baso % (Auto) 0.3 Lymph # (Auto) 1.85 [place] # (Auto) 0.5 Eos # (Auto) 0.1 Baso # (Auto) 0.0 Abs Immat Gran (auto) 0.03 Absolute Neuts (auto) 4.7 Absolute Nucleated RBC 0.0 Nucleated RBC % 0.0 Sodium 137 Potassium 3.6 Chloride 107 Carbon Dioxide 23 Anion Gap 7 L BUN 8 Creatinine 0.60 L Estim Creat Clear Calc 126 Estimated GFR > 60 Glucose 112 H Calcium 7.9 L Total Bilirubin 0.2 AST 18 ALT 18 Alkaline Phosphatase 51 Total Protein 6.0 L Albumin 3.0 L Amylase < 30 L Lipase 24 Urine Color Light yellow Urine Appearance Cloudy H Urine pH 7.0 Ur Specific [place] 1.015 Urine Protein Negative Urine Glucose (UA) Negative Urine Ketones Negative Ur Blood (Man) Negative Urine Nitrate Negative Urine Bilirubin Negative Urine Urobilinogen 0.2 Leukocyte Esterase Rfl Negative Urine RBC 0-2 Urine WBC 0-3 Ur Squamous Epith Cells Many H Urine Bacteria 3+ H Urine Mucus Rare 03/08/22 03/08/22 15:47 15:47 WBC 8.8 RBC 4.23 Hgb 11.8 L Hct 36.5 L MCV 86.3 MCH 27.9 MCHC 32.3 RDW 15.4 H Plt Count 209 MPV 10.7 H Immature Gran % (Auto) 0.7 H Neut % (Auto) 73.6 H Lymph % (Auto) 17.8 L [place] % (Auto) 6.7 Eos % (Auto) 1.0 Baso % (Auto) 0.2 Lymph # (Auto) 1.57 [place] # (Auto) 0.6 Eos # (Auto) 0.1 Baso # (Auto) 0.0 Abs Immat Gran (auto) 0.06 H Absolute Neuts (auto) 6.5 Absolute Nucleated RBC 0.0 Nucleated RBC % 0.0 Sodium 137 Potassium 3.7 Chloride 105 Carbon Dioxide 24 Anion Gap 8 BUN 9 Creatinine 0.60 L Estim Creat Clear Calc 126 Estimated GFR > 60 Glucose 128 H Calcium 8.5 Total Bilirubin 0.2 AST 17 ALT 19 Alkaline Phosphatase 64 Total Protein 7.0 Albumin 3.5 Amylase Lipase 29 Urine Color Urine Appearance Urine pH Ur Specific Central Urine Protein Urine Glucose (UA) Urine Ketones Ur Blood (Man) Urine Nitrate Urine Bilirubin Urine Urobilinogen Leukocyte Esterase Rfl Urine RBC Urine WBC Ur Squamous Epith Cells Urine Bacteria Urine Mucus Discharge Plan Discharge Attending physician on discharge: Jose Antonio Krueger Discharging Clinician: Jose Antonio Krueger
== END 2022-03-09 11:05 | disposition home or self-care (01) ==
LOC: ANHED 18:23 → ANHOBPP 18:47
PROVIDERS: Physician Assistant; Admitting Provider Obstetrics & Gynecology; Emergency Provider Emergency Medicine; PCP Obstetrics & Gynecology; Visit Provider Obstetrics & Gynecology
DX: O26.891 Other specified pregnancy related conditions, first trimester (principal); R10.13 Epigastric pain; J45.909 Unspecified asthma, uncomplicated; F32.A Depression, unspecified; O24.911 Unspecified diabetes mellitus in pregnancy, first trimester; Z3A.08 8 weeks gestation of pregnancy; Z79.891 Long term (current) use of opiate analgesic; Z79.1 Long term (current) use of non-steroidal anti-inflammatories (NSAID); Z79.899 Other long term (current) drug therapy; Z83.3 Family history of diabetes mellitus
CPT/HCPCS: 36415; 76705; 80053; 81001; 82150; 83690; 85025; 96361; 96365; 96375; 99285; A9270; C9113; G0378; J0131; J1200; J2765; J7030; J7121

== ENCOUNTER 2022-04-02 21:02 | Emergency (ER) | payer BC, SELFPAY ==
[2022-04-02 21:23] VITALS: BP 142/69; PULSE 100; RESP 18; TEMP 36.6; O2SAT 99
[2022-04-03 01:22] VITALS: BP 120/76; PULSE 84; RESP 20; O2SAT 100
--- NOTE | 2022-04-03 06:21 | ED.SOB ---
HPI - SOB/Dyspnea General Chief Complaint: Shortness of Breath/Dyspnea Stated Complaint: SOB/COVID + 04/01 Time Seen by Provider: 04/03/22 00:22 History of Present Illness HPI Narrative: Patient who is 12 weeks , started having cough several days ago and was diagnosed with COVID 2 days ago presents here because she was concerned about having slight shortness of breath; history of anxiety. Feeling well currently Related Data Home Medications Medication Instructions Recorded Confirmed vit no.95-ferrous 1 tablet PO DAILY 01/25/20 03/08/22 fumarate 28 mg-folic acid 800 mcg tablet () sertraline 100 mg tablet 100 mg PO DAILY 01/25/20 03/08/22 Allergies Allergy/AdvReac Type Severity Reaction Status Date / Time clavulanic acid Allergy Intermediate HIVES Verified 04/03/22 00:11 amoxicillin Allergy Unknown Hives / Verified 04/03/22 00:11 Red Face Penicillins Allergy Unknown RASH,HIVES Verified 04/03/22 00:11 Review of Systems Review of Systems: CONST: No fever. HEENT: No sore throat C/V: No chest pain RESP: Cough and mild shortness of breath GI: No nausea or vomiting : No dysuria. M/S: No joint pain. SKIN: No rash. NEURO: [No headache or focal numbness or weakness] PSYCH: [No depression] [facility] Past Medical History Medical History Asthma Depression Diabetes Surgical History Surgical History History of delivery Family History Family History Father Type 2 diabetes mellitus Mother Pre-diabetes High cholesterol Grandparent Cancer Sibling Asthma Social History Social History Smoking status: Never smoker Substance use: never Gender identity (if verbalized by the patient): Female Spiritual care concerns: No Exam Narrative: EXAMINATION OF ORGAN SYSTEMS/BODY AREAS: Constitutional: Vital signs per nursing GENERAL:[No acute distress, non-toxic appearing.] HEAD: Normal with no signs of head trauma. EYES: EOMI, conjunctiva normal ENT: Hearing grossly intact LUNGS: Nonlabored breathing. Clear to auscultation bilaterally HEART: [Regular rate and rhythm] ABD: [Soft], gravid EXT: Normal range of motion, no swelling or tenderness of lower extremities SKIN: [No rashes or lesions.] NEURO: [Alert and oriented x 3. No gross focal sensory or strength deficits.] PSYCH: Normal affect Course Vital Signs Vital signs: Vital Signs Temperature 98 F 04/02/22 21:23 Pulse Rate 100 04/02/22 21:23 Respiratory Rate 18 04/02/22 21:23 Blood Pressure 142/69 H 04/02/22 21:23 Pulse Oximetry 99 04/02/22 21:23 Oxygen Delivery Room Air 04/02/22 21:23 Temperature 98 F 04/02/22 21:23 Pulse Rate 84 04/03/22 01:22 Respiratory Rate 20 04/03/22 01:22 Blood Pressure 120/76 04/03/22 01:22 Pulse Oximetry 100 04/03/22 01:22 Oxygen Delivery Room Air 04/03/22 01:00 MDM - SOB/Dyspnea MDM Narrative Medical decision making narrative: 36-year-old female with recent diagnosis of COVID presents concerned about her shortness of breath, she is well-appearing here with normal cardiopulmonary exam, I have low concern for PE without DVT symptoms and she is PERC negative, and I doubt she would be at elevated risk of PE at least until day 7 of 10 of her illness. She is denying any current chest pain or shortness of breath, her pulse ox here has remained 99% on room air, I counseled her extensively on return precautions and as well as urged her to obtain a pulse oximeter and check her O2 at home, and to follow-up with her primary care doctor. She is agreeable to expectant management at home. Discharge Plan Discharge Clinical Impression: COVID-19 Patient Disposition: Home, Self-Care Condition: Stable Instructions: Antibiotic Form, COVID-19
== END 2022-04-03 01:23 | disposition home or self-care (01) ==
PROVIDERS: Emergency Provider Emergency Medicine; PCP Obstetrics & Gynecology
DX: O98.511 Other viral diseases complicating pregnancy, first trimester (principal); U07.1 COVID-19; O99.341 Other mental disorders complicating pregnancy, first trimester; F32.A Depression, unspecified; O99.511 Diseases of the respiratory system complicating pregnancy, first trimester; J45.990 Exercise induced bronchospasm; Z3A.12 12 weeks gestation of pregnancy; Z86.32 Personal history of gestational diabetes
CPT/HCPCS: 99283

== ENCOUNTER 2022-08-04 14:14 | Observation (INO) | payer BC, SELFPAY ==
[2022-08-04 14:46] VITALS: BP 128/64; PULSE 80
[2022-08-04 15:01] VITALS: BP 126/62; PULSE 79
[2022-08-04 15:16] VITALS: BP 125/59; PULSE 70
[2022-08-04 15:30] VITALS: TEMP 36.6
[2022-08-04 15:41] LABS: Appearance Urine Turbid (Clear); Bilirubin Urine 1+ (Negative); Blood Urine Negative (Negative); Color Urine Yellow (Yellow); Glucose Urine UA Negative (Negative); Ketones Urine Trace mg/dL (Negative); Leukocyte Esterase Ur Negative LEU/UL (Negative); Nitrate Urine Negative (Negative); Protein Urine 1+ mg/dL (Negative); Specific Grav Ur >= 1.030 (1.001-1.035); Urobilinogen Urine 0.2 mg/dL (<2.0)
[2022-08-04 16:12] LABS: Amorphous Sediment Urine Few; Bacteria Urine 1+ /hpf; Squamous Epithelial Cell Urine Moderate /hpf (Few)
[2022-08-04 16:24] LABS: Add Urine Microscopic? YES
--- NOTE | 2022-08-04 16:45 | OBADM ---
This patient, Ellen Valentin, admitted to the OB room OB Post 113 for observation. Patient/family oriented to hospital policies and general routines including ID bracelet, bed and alarms, visiting hours, pain management, procedures, bathroom and other care routines, personal items, smoking policy, room service/diet, and visiting hours. Patient/Family are encouraged to report perceived risks to care and to ask questions if they do not understand what they are told or what they should do.
--- NOTE | 2022-08-15 12:47 | PM.OBTRLD ---
OB - Triage/Final Diagnosis Visit Information Comments/Additional reasons for admission: I have assessed the risk for this patient, Ellen Valentin, and determined that she would benefit from observation care. Evaluation Laboratory results: Laboratory Tests 08/04/22 15:27 Urine Color Yellow Urine Appearance Turbid H Urine pH 6.0 Ur Specific [place] >= 1.030 Urine Protein 1+ H Urine Glucose (UA) Negative Urine Ketones Trace Ur Blood (Man) Negative Urine Nitrate Negative Urine Bilirubin 1+ H Urine Urobilinogen 0.2 Leukocyte Esterase Rfl Negative Urine RBC 11-20 H Urine WBC 7-9 H Ur Squamous Epith Cells Moderate H Amorphous Sediment Few H Urine Bacteria 1+ H Final Diagnosis (1) contractions: Code(s): O47.00 - False labor before 37 completed weeks of gestation, unspecified trimester Status: Acute
== END 2022-08-04 16:55 | disposition home or self-care (01) ==
PROVIDERS: Admitting Provider Obstetrics & Gynecology; Visit Provider Obstetrics & Gynecology
DX: O47.00 False labor before 37 completed weeks of gestation, unspecified trimester (principal); O26.899 Other specified pregnancy related conditions, unspecified trimester; R10.9 Unspecified abdominal pain; Z3A.00 Weeks of gestation of pregnancy not specified
CPT/HCPCS: 81001; 87086; 87088; G0378; G0379

== ENCOUNTER 2022-08-05 10:00 | Outpatient (RCR) | payer BC, SELFPAY ==
[2022-08-05 10:45] VITALS: BMI 45.3
[2022-08-05 10:46] VITALS: BMI 45.3
== END 2022-10-20 12:39 | disposition home or self-care (01) ==
LOC: ANHDMC 10:00
PROVIDERS: PCP Obstetrics & Gynecology; Visit Provider Obstetrics & Gynecology
DX: O24.319 Unspecified pre-existing diabetes mellitus in pregnancy, unspecified trimester (principal); Z3A.00 Weeks of gestation of pregnancy not specified; Z71.89 Other specified counseling; Z71.3 Dietary counseling and surveillance
CPT/HCPCS: 97802; G0108

== ENCOUNTER 2022-08-06 16:11 | Outpatient (RCR) | payer BC, SELFPAY ==
[2022-08-06] MEDS: RHO(D) IMMUNE GLOBULIN 300 MCG/2 ML SYRINGE IM (16:30)
== END 2022-11-03 23:59 | disposition home or self-care (01) ==
LOC: ANHLAB 16:11
PROVIDERS: Visit Provider Obstetrics & Gynecology
DX: Z29.13 Encounter for prophylactic Rho(D) immune globulin (principal); O36.0190 Maternal care for anti-D [Rh] antibodies, unspecified trimester, not applicable or unspecified; Z3A.00 Weeks of gestation of pregnancy not specified
CPT/HCPCS: 36415; 85461; 86850; 86900; 86901; 90384; 96372; J2790

== ENCOUNTER 2022-08-25 18:23 | Observation (INO) | payer BC, SELFPAY ==
[2022-08-25 16:45] VITALS: BMI 44.9
--- NOTE | 2022-08-25 18:14 | PC.NURSE ---
Jeannine Mojica on the unit. MD was paged several times, unable to reach. Provider reviewed tracing on the unit. Pt experiencing cramps that she rate 2-3/10. MD ordered FFN and SVE be preformed.
--- NOTE | 2022-08-25 18:30 | OBADM ---
This patient, Ellen Valentin, admitted to the OB room Labor/Delivery/Recovery 118 for observation. Patient/family oriented to hospital policies and general routines including ID bracelet, bed and alarms, visiting hours, pain management, procedures, bathroom and other care routines, personal items, smoking policy, room service/diet, and visiting hours. Patient/Family are encouraged to report perceived risks to care and to ask questions if they do not understand what they are told or what they should do.
[2022-08-25] MEDS: NIFEdipine 10 MG CAPSULE PO (18:33)
[2022-08-25 19:00] LABS: Fetal Fibronectin Negative
--- NOTE | 2022-08-25 19:21 | PC.NURSE ---
Pt reports contractions have decreased in intensity and how often. Dr. Jeannine Mojica aware of this and FFN results and states patient can be discharged.
[2022-08-25 19:33] VITALS: BP 126/64; PULSE 96
--- NOTE | 2022-08-25 19:38 | PC.NURSE ---
D/c instructions reviewed with patient. Pt had no questions and verbalized understanding. pt ambulatory to exit.
--- NOTE | 2022-08-27 07:22 | PM.OBTRLD ---
OB - Triage/Final Diagnosis Visit Information Reason for evaluation: threatened labor Comments/Additional reasons for admission: I have assessed the risk for this patient, Ellen Valentin, and determined that she would benefit from observation care. Evaluation Laboratory results: Laboratory Tests 08/25/22 18:24 Fibronectin Negative
== END 2022-08-25 19:40 | disposition home or self-care (01) ==
PROVIDERS: Admitting Provider Obstetrics & Gynecology; Visit Provider Obstetrics & Gynecology
DX: O47.03 False labor before 37 completed weeks of gestation, third trimester (principal); O24.419 Gestational diabetes mellitus in pregnancy, unspecified control; Z3A.32 32 weeks gestation of pregnancy
CPT/HCPCS: 82731; A9270; G0378; G0379

== ENCOUNTER 2022-09-18 15:32 | Outpatient (RCR) | payer BC, SELFPAY ==
[2022-09-01 13:06] VITALS: BP 118/76; PULSE 78
[2022-09-09 16:23] VITALS: BP 121/66; PULSE 80
[2022-09-18 16:13] VITALS: BP 130/73; PULSE 70
== END 2022-10-17 15:12 | disposition home or self-care (01) ==
LOC: ANHOBOP 15:32
PROVIDERS: Visit Provider Obstetrics & Gynecology
DX: O24.419 Gestational diabetes mellitus in pregnancy, unspecified control (principal); Z3A.33 33 weeks gestation of pregnancy; Z3A.35 35 weeks gestation of pregnancy; Z3A.36 36 weeks gestation of pregnancy
CPT/HCPCS: 59025

== ENCOUNTER 2022-09-23 14:53 | Outpatient (CLI) | payer BC, SELFPAY ==
[2022-09-23 16:02] LABS: Hematocrit 30.5 % (37.0-47.0); Hemoglobin 9.9 g/dL (12.0-15.0); Mean Corpuscular HGB Conc 32.5 g/dl (32-36); Mean Corpuscular Hemoglobin 26.7 pg (26-34); Mean Corpuscular Volume 82.2 fl (80-100); Mean Platelet Volume 13.3 fl (7.4-10.4); Platelet Count Result 185 k/mm3 (150-375); Red Blood Count 3.71 M/mm3 (4.2-5.4); White Blood Count 10.6 K/mm3 (4.5-10.0)
[2022-09-24 14:15] LABS: Rapid Plasma Reagin Non-Reactive (NonReactive)
== END 2022-09-23 14:54 | disposition home or self-care (01) ==
LOC: ANHLAB 14:54
PROVIDERS: Visit Provider Obstetrics & Gynecology
DX: Z34.93 Encounter for supervision of normal pregnancy, unspecified, third trimester (principal); Z3A.00 Weeks of gestation of pregnancy not specified
CPT/HCPCS: 36415; 85027; 86592; 86850; 86900; 86901

== ENCOUNTER 2022-09-25 09:52 | Inpatient (IN) | payer BC, SELFPAY ==
[2022-09-25] VITALS (65 sets, daily range): BP systolic 101–141; BP diastolic 50–84; PULSE 50–89; RESP 12–20; TEMP 36.3–36.7; O2SAT 94–100; BMI 45.3
--- NOTE | 2022-09-25 10:46 | LDADM ---
This patient, Ellen Valentin, was admitted to Labor/Delivery/Recovery 119 on 09/25/22 at 09:52. Plans for surgery/ and pain management was discussed with patient. Patient/family oriented to hospital policies and general routines including ID bracelet, bed and alarms, visiting hours, pain management, procedures, bathroom and other care routines, personal items, smoking policy, room service/diet and guest tray routines, infant security routines, and visiting hours. Patient/Family are encouraged to report perceived risks to care and to ask questions if they do not understand what they are told or what they should do.
[2022-09-25] MEDS: LACTATED RINGERS 1,000 ML 999 ML IV CONT (11:05)
--- NOTE | 2022-09-25 11:27 | WPDANESEPPF ---
Anes - Initial Pre Proc Eval Procedure: Operation Date: 09/25/22 12:00 Proposed Procedures p Repeat Section with Tubal Ligation - David Wolf MD Date/Time: 09/25/22 11:27 Surgeon: David Wolf MD Pre Op Diagnosis: Rep , Desires Sterilization Patient Data Age: 37 Gender: F Height: 1.55 m Weight: 109 kg Last Vital Signs Temp 36.5 C 09/25/22 10:46 Pulse 77 09/25/22 10:46 Resp 20 09/25/22 10:46 BP 116/81 09/25/22 10:46 O2 Del Method Room Air 09/25/22 10:46 Allergies Allergy/AdvReac Type Severity Reaction Status Date / Time clavulanic acid Allergy Intermediate HIVES Verified 09/18/22 15:47 amoxicillin Allergy Unknown Hives / Verified 09/18/22 15:47 Red Face Penicillins Allergy Unknown RASH,HIVES Verified 09/18/22 15:47 adhesive tape Allergy Blister Verified 09/18/22 16:14 bandaid AdvReac Mild Rash Uncoded 09/18/22 16:04 Home Medications Medication Instructions Recorded Confirmed Type vit no.95-ferrous 1 tablet PO DAILY 01/25/20 09/25/22 History fumarate 28 mg-folic acid 800 mcg tablet () fluoxetine 60 mg tablet 60 mg PO DAILY 09/18/22 09/25/22 History glyburide 2.5 mg tablet 2.5 mg PO DAILY 09/18/22 09/25/22 History famotidine 20 mg tablet (Pepcid) 20 mg PO DAILY PRN Heartburn 09/25/22 09/25/22 History Laboratory Tests 09/25/22 11:05 HIV 1&2 Ab/P24 Ag 4thGn Pending Patient hx anesthesia problems: none Family hx anesthesia problems: none Results Review: All pre-operative results and documents have been reviewed as part of the pre-operative evaluation. [facility] Past Medical History Medical History Asthma Depression Diabetes Surgical History Surgical History History of delivery Family History Family History (Updated 09/25/22 @ 11:15 by Shaye Bauman RN) Father Type 2 diabetes mellitus Cerebrovascular accident Mother High cholesterol Pre-diabetes Grandparent Cancer Sibling Asthma Social History Social History Smoking status: Never smoker Substance use: never Gender identity (if verbalized by the patient): Female Spiritual care concerns: No Anes - Eval Final PreProcedure Day of Procedure 09/25/22 11:27 Patient weight: morbidly obese Heart: regular rate and rhythm Lungs: clear to auscultation Airway: Mallampati scale class II Neurological: alert and oriented Last oral intake: >/= 8 hours ASA classification: III Emergent: no Anesthetic plan: proceed Anesthesia type and monitoring: regional spinal and standard monitoring Results Review: All pre-operative results and documents have been reviewed as part of the pre-operative evaluation. Informed Consent: The patient's anesthetic plan and its attendant risks and benefits were discussed with the patient/family/POA. Questions were solicited and answers provided to the satisfaction of the patient/family/POA.
--- NOTE | 2022-09-25 11:52 | PM.IMHP ---
H&P: HPI History of Present Illness Date/Time: 09/25/22 11:52 Chief Complaint: Here for c section Narrative: 37 y/o at 37 1/7 weeks with gestational diabetes, now with worsening control. She has become much less compliant with accucheck monitoring. Last ultrasound on 09/22/22 showed polyhydramnios. EFW 7#6oz. I have offered to deliver her because of worsening glycemic control. GBS not back yet. She has finished childbearing and desires tubal ligation with repeat . Review of Systems Review of Systems: All systems reviewed & are unremarkable except as noted in HPI and below PMFSH Past Medical History Medical History (Updated 09/25/22 @ 11:57 by David Wolf MD) Asthma Depression Diabetes Surgical History Surgical History (Updated 09/25/22 @ 11:57 by David Wolf MD) History of delivery Family History Family History Father Type 2 diabetes mellitus Cerebrovascular accident Mother High cholesterol Pre-diabetes Grandparent Cancer Sibling Asthma Social History Social History Smoking status: Never smoker Second hand tobacco smoke exposure: No Substance use: never Lack of Transportation: No Lack of Food: Never True Current Housing: I Have Housing Concerned About Future Housing: No Difficulty Paying Gas/Electric Bills: No Difficulty Paying for Meds: No Currently Unemployed: No Education: Master's Degree or Higher Difficulty w/ Childcare or Family Care: No Gender identity (if verbalized by the patient): Female Spiritual care concerns: No Meds Home Medications and Allergies Home Medications Medication Instructions Recorded Confirmed Type vit no.95-ferrous 1 tablet PO DAILY 01/25/20 09/25/22 History fumarate 28 mg-folic acid 800 mcg tablet () fluoxetine 60 mg tablet 60 mg PO DAILY 09/18/22 09/25/22 History glyburide 2.5 mg tablet 2.5 mg PO DAILY 09/18/22 09/25/22 History famotidine 20 mg tablet (Pepcid) 20 mg PO DAILY PRN Heartburn 09/25/22 09/25/22 History Allergies Allergy/AdvReac Type Severity Reaction Status Date / Time clavulanic acid Allergy Intermediate HIVES Verified 09/18/22 15:47 amoxicillin Allergy Unknown Hives / Verified 09/18/22 15:47 Red Face Penicillins Allergy Unknown RASH,HIVES Verified 09/18/22 15:47 adhesive tape Allergy Blister Verified 09/18/22 16:14 bandaid AdvReac Mild Rash Uncoded 09/18/22 16:04 Vital Signs Vital Signs - 24 hr 09/25/22 10:46 09/25/22 10:46 09/25/22 10:31 Temperature 36.5 C Pulse Rate 70 Respiratory Rate 20 Blood Pressure 125/81 Oxygen Delivery Room Air 09/25/22 10:46 Temperature Pulse Rate 77 Respiratory Rate Blood Pressure 116/81 Oxygen Delivery Exam Const: Orientation/consciousness: patient oriented x3 Other: Well-developed, well-nourished female in no acute distress. Neck: Thyroid: thyroid normal Lymphatic: no lymphadenopathy noted (in neck, axilla or inguinal nodes) Resp: Effort & Inspection: normal respiratory effort Auscultation: clear to auscultation bilaterally Cardio: Rate: regular rate Rhythm: regular rhythm Heart sounds: S1 normal heart sound present and S2 normal heart sound present GI: Other: ABD: Soft, nontender, nondistended, gravid. FH 42 cm. NST reactive. TOCO: no contractions. No guarding or rebound tenderness. No hepatosplenomegaly. : General: Yes no CVA tenderness Other: Cervix closed, thick. Back/Spine/Pelvis: Back: no CVA tenderness Skin: General skin exam: normal color and no rashes or lesions noted Neuro: General: patient oriented x3 Extrem: Other: Extremities: nontender with no edema Psych: Mental Status: mental status grossly normal Affect: normal affect Assessment and Plan Assessment and plan (1) Polyhydramnios affecting :
[2022-09-25 11:55] LABS: Glucose Point of Care 69 mg/dl (65-105)
--- NOTE | 2022-09-25 12:00 | WPDHPUPDATE1 ---
History and Physical Update Update Date/Time: 09/25/22 12:00 History and Physical has been reviewed, including an updated exam of the patient. There are NO changes in the patient's condition. Risks, benefits, and alternatives have been discussed and questions answered. Patient agrees to proceed with procedure.
[2022-09-25] MEDS: ceFAZolin 2 GM/D5W 50 ML 2 GM/50 ML BAG IVPB (12:04)
[2022-09-25 12:14] LABS: HIV 1/2 Ab P24 Ag Result Negative (Negative)
--- NOTE | 2022-09-25 13:47 | PM.OBPRVD ---
OB - Delivery Note Procedure Delivery date: 09/25/22 Procedure: Procedures Operation Date: 09/25/22 12:00 Actual Procedure Side Surgeon p Section David Wolf MD Repeat low transverse deliver Bilateral tubal ligation via modified [place] technique Events: Gestational Diabetes and Polyhydramnios Delivery monitor: External FHT and External Uterine Route of delivery: Specimen: Yes (cord blood, placenta, segments of bilateral Fallopian tubes) Quantitative Blood Loss (ml): 1,210 Anesthesia type: Spinal Disposition: PACU Complications: None Narrative: The patient was taken to the operating room where she was prepared and draped in the usual sterile fashion in dorsal supine position with a leftward tilt. She received cefazolin preoperatively. Spinal anesthesia was found to be adequate. A Pfannenstiel skin incision was made along the previous scar line and was carried through to the underlying layer of the fascia. The fascia was incised in the midline and the incision was extended laterally. The fascia was dissected free of the underlying rectus muscles. The rectus muscles were in the midline. The peritoneum was identified, tented up and entered sharply. The peritoneal incision was extended superiorly and inferiorly with good visualization of the bladder. The bladder blade was placed. The vesicouterine peritoneum was identified, tented up and entered sharply. The incision was extended laterally and the bladder flap was developed. The bladder blade was replaced. The uterus was then incised sharply in a transverse fashion along the lower uterine segment. The incision was extended laterally. The 's head was delivered atraumatically to the sterile field, followed by the body. The nose and mouth were bulb suctioned. After a delay, the cord was clamped and cut. The infant was handed off the field. Cord blood was collected. The placenta was removed manually and was passed off the field. The uterus was exteriorized and cleared of all clots and debris. The uterine incision was reapproximated using 0 Monocryl in a running, locked fashion. A second, imbricating layer of the same suture was run. Excellent hemostasis resulted as did excellent reapproximation of the normal anatomy. The left fallopian tube was then identified by following it out to the fimbriated end. It was grasped in the midportion with a [place]ott clamp and a loop of tube was ligated with a free tie of 0 plain gut. The tubal segment was then transected and the specimen was passed off to be sent to pathology. Hemostasis was excellent. Attention was turned to the right fallopian tube which was similarly identified, ligated and transected. Once again, excellent hemostasis resulted. The uterus was returned the abdomen. The pelvis was irrigated copiously with warmed normal saline. The bladder flap was treated with Hemaderm. She was given 1 gram TXA IV. Rigorous hemostasis was assured. The fascial layer was reapproximated using 0 Vicryl in a running fashion. The skin was closed with a running, subcuticular stitch of 4 0 Vicryl. Dermaflex was applied externally. Sponge, lap, needle and instrument counts were correct. The patient was taken to the recovery room in stable condition. The infant went to the nursery in stable condition. I was present and scrubbed the entire procedure. [place] [facility] Date of : 09/25/22 Time of : 12:37 Weeks of gestation at delivery: 37 Infant gender: Female Weight (pounds): 7 Weight (ounces): 5 presentation: vertex Placenta delivery description: Manual Removal and Normal Configuration Cord Vessel Description: 3 Vessels and Delayed Cord Clamping score one minute: 7 score five minutes: 9
--- NOTE | 2022-09-25 13:48 | PM.OBDSVD ---
DS: Admitting Diagnosis Discharge Date 09/28/22 Admitting Diagnosis IUP at 37 weeks A2DM, poor compliance Polyhydramnios Prior Desired sterility DS: Discharge Diagnosis Discharge Diagnosis (1) Unwanted fertility: Code(s): Z30.09 - Encounter for other general counseling and advice on contraception Status: Acute (2) Polyhydramnios affecting : Code(s): O40.9XX0 - Polyhydramnios, unspecified trimester, not applicable or unspecified Status: Acute (3) Gestational diabetes mellitus (GDM): Code(s): O24.419 - Gestational diabetes mellitus in , unspecified control Status: Acute (4) History of delivery: Code(s): Z98.891 - History of uterine scar from previous surgery Status: Acute OB - DS: Summary OB Procedures : NST OB Procedures Intrapartum: and Tubal ligation OB Procedures: : None Peripartum Data Procedures: Procedures Operation Date: 09/25/22 12:00 Actual Procedure Side Surgeon p Section David Wolf MD Time Spent with Patient Time attestation: Total time spent providing and/or coordinating discharge services: DS: Data Data Completed and Pending Pending studies at discharge: Pending at discharge 09/25/22 12:53 Surgical [PTH] Routine Labs on day of discharge: Labs from last 24 hours 09/25/22 09/25/22 11:51 11:05 POC Capillary Glucose 69 HIV 1&2 Ab/P24 Ag 4thGn Negative Discharge Plan Discharge Attending physician on discharge: David Wolf Consulting providers: Denisse Darnell ; Jose Antonio Krueger ; Matt Vazquez Discharging Clinician: David Wolf Patient Disposition: Home, Self-Care Activity: may shower, may drive after 2 weeks and pelvic rest Diet: regular Wound Care Instructions: incision open to air Discharge Instructions: Call or return if temperature above 100.4? F, increased abdominal pain, increased vaginal bleeding or any new problems. Education: Mom and Baby Guide Given to: Mother Follow-Up: Call your delivering provider's office for an appointment to be seen in: 4 Weeks Mom and baby should come to the [facility] for the follow-up appointment. Appointment Date/Time: September 30, 2022 at 9:00 am What to expect at your follow-up visit: Blood Pressure Check Physical Assessment Call [phone] if you are unable to keep your appointment time. BREAST CARE: * Wear a snug supportive bra. * For engorgement discomfort: Breast Feeding: * Apply warm moist washcloths * Express milk as needed to relieve engorgement * Wear loose clothing Bottle Feeding: * May apply ice packs * For sore nipples: * Identify correct latch-on * Apply warm moist washcloths before and after nursing * Air dry nipples after nursing * May apply Lansinoh cream to nipples ABDOMINAL INCISION: * Allow incision to air dry * Do NOT use lotions for powders on your incision * When showering, allow soap and water to run over the incision, but do not wash incision EPISIOTOMY/PERINEAL CARE: * Until bleeding stops, use your niesha bottle after urinating * Change your pad frequently throughout the day * You may take sitz baths several times a day (fill your bathtub with warm water and soak for 20 minutes.) Do NOT bathe in the water * No tub baths until seen by your physician - You may shower ACTIVITY: * Rest as much as possible. * Do not exercise or lift anything heavier than your baby (such as laundry or other children.) * Avoid stairs or driving as much as possible. * Do not put anything into the vagina. No douching, tampons, or sexual activity until seen by physician. NOTIFY PHYSICIAN IF YOU HAVE ANY QUESTIONS OR IF ANY OF THE FOLLOWING SYMPTOMS OCCUR: * If your incision becomes red, swollen, or more painful than what you h
[2022-09-25] MEDS: OXYTOCIN 30 UNITS/NS 500 ML 30 UNITS/500 ML BAG 125 UNITS IV CONT (14:06)
[2022-09-25] MEDS: MORPHINE SULFATE INJ (*CRX) 10 MG/ML AMP 2 MG IV PUSH ×5 (14:14→15:52)
--- NOTE | 2022-09-25 16:30 | PC.NURSE ---
Patient transferred to post room #280 via [id number]. Support person present. Oriented to unit, room, information board, rooming in, admission packet and security measures. Patient verbalizes understanding.
[2022-09-25] MEDS: KETOROLAC 30 MG/ML VIAL (*BKC) (17:12)
[2022-09-25] MEDS: DEXTROSE 5%/0.45% SOD CHL 1,000 ML 125 ML IV CONT (18:44)
[2022-09-25] MEDS: HYDROcodone/acetaminophen (*CRX) 5-325 MG TABLET 1 TAB PO ×3 (20:27→23:21)
[2022-09-25] MEDS: SIMETHICONE 80 MG TAB.CHEW PO (22:00)
[2022-09-25] MEDS: IBUPROFEN 600 MG TABLET PO (23:21)
[2022-09-26 00:15] VITALS: BP 137/72; PULSE 63; RESP 16; TEMP 37.1; O2SAT 100
[2022-09-26] MEDS: HYDROcodone/acetaminophen (*CRX) 10-325 MG TABLET 1 TAB PO ×5 (01:56→16:55)
[2022-09-26] MEDS: SIMETHICONE 80 MG TAB.CHEW PO ×4 (01:56→20:45)
[2022-09-26] MEDS: KCL 20 MEQ/D5/0.45% SOD CHL 1,000 ML 125 ML IV CONT (01:56)
[2022-09-26 04:35] VITALS: BP 128/62; PULSE 67; RESP 16; TEMP 36.5; O2SAT 100
[2022-09-26] MEDS: IBUPROFEN 600 MG TABLET PO ×3 (05:04→20:44)
[2022-09-26 05:49] LABS: Basophils Percent Auto 0.3 % (0.2-1.2); Eosinophils Percent Auto 0.2 % (0-4.4); Hematocrit 25.7 % (37.0-47.0); Hemoglobin 8.2 g/dL (12.0-15.0); Immature Granulocyte Absolute 0.06 K/mm3 (0.00-0.031); Immature Granulocyte Percent A 0.6 % (0-0.5); Immature Platelet Fraction Pct 12.2 % (0.9-11.2); Lymphocytes Absolute Auto 1.53 K/mm3 (0.9-3.2); Mean Corpuscular HGB Conc 31.9 g/dl (32-36); Mean Corpuscular Hemoglobin 27.2 pg (26-34); Mean Corpuscular Volume 85.4 fl (80-100); Mean Platelet Volume 13.4 fl (7.4-10.4); Monocytes Absolute Auto 0.9 K/mm3 (0.1-0.6); Monocytes Percent Auto 8.8 % (2.6-8.5); Neutrophils Absolute Auto 7.6 K/mm3 (1.3-6.7); Neutrophils Percent Auto 75.1 % (45.5-73.1); Platelet Count Result 140 k/mm3 (150-375); Red Blood Count 3.01 M/mm3 (4.2-5.4); Red Cell Distribution Width 14.3 % (11.5-14.5); White Blood Count 10.2 K/mm3 (4.5-10.0)
--- NOTE | 2022-09-26 06:03 | PM.OBPNVD ---
OB - PN: Subj Subjective Date/time seen: 09/26/22 06:03 Patient comments: no complaints and pain well controlled baby status: doing well and nursing well OB - PN: Obj Data Labs 09/26/22 05:11 Labs: Laboratory Results - last 24 hr 09/25/22 09/25/22 09/26/22 11:05 11:51 05:11 WBC 10.2 H RBC 3.01 L Hgb 8.2 L Hct 25.7 L MCV 85.4 MCH 27.2 MCHC 31.9 L RDW 14.3 Plt Count 140 L MPV 13.4 H Immature Gran % (Auto) 0.6 H Neut % (Auto) 75.1 H Lymph % (Auto) 15.0 L [place] % (Auto) 8.8 H Eos % (Auto) 0.2 Baso % (Auto) 0.3 Lymph # (Auto) 1.53 [place] # (Auto) 0.9 H Eos # (Auto) 0.0 Baso # (Auto) 0.0 Abs Immat Gran (auto) 0.06 H Absolute Neuts (auto) 7.6 H Absolute Nucleated RBC 0.0 Nucleated RBC % 0.0 % Immature Plt Fraction 12.2 H POC Capillary Glucose 69 HIV 1&2 Ab/P24 Ag 4thGn Negative OB - PN A/P Plan day: 1 Plan: routine care Time Spent With Patient Time: Total time spent is greater than 50% in coordination of care (as documented) at patient's floor/unit and/or counseling patient: Time with patient: less than 15 minutes Exam Const: General: cooperative, healthy appearing and comfortable Nutritional Appearance: overweight Orientation/consciousness: oriented to person, oriented to place and oriented to time HENMT: Head: normal to inspection Resp: Effort & Inspection: normal respiratory effort Cardio: Rate: regular rate Rhythm: regular rhythm Heart sounds: S1 normal heart sound present and S2 normal heart sound present GI: Inspection: normal to inspection ( fundus firm below the umbilicus) and incision ( wound clean dry and intact)
[2022-09-26 08:30] VITALS: BP 130/62; PULSE 66; RESP 18; TEMP 36.6; O2SAT 100
[2022-09-26] MEDS: DOCUSATE SODIUM 100 MG CAPSULE PO ×2 (09:18→16:55)
[2022-09-26] MEDS: POLYSACCHARIDE IRON COMPLEX 150 MG CAPSULE PO ×2 (09:18→16:55)
[2022-09-26] MEDS: MULTIVIT/MIN/PREN/FOL AC/IRON TABLET 1 TAB PO (09:19)
--- NOTE | 2022-09-26 09:41 | WPDANLDPN2 ---
Anes-Prog Note L&D Date/Time: 09/26/22 09:41 Comfortable throughout: section Neuraxial method: spinal Epidural/Spinal procedure site: clean & non-tender Neuro status: Neuro function grossly intact. Cardiovascular status: normal Respiratory status: normal Airway patency: baseline Mental status: baseline Post-Op hydration status: normal Vital Signs: Last Vital Signs Temp 36.5 C 09/26/22 04:35 Pulse 67 09/26/22 04:35 Resp 16 09/26/22 04:35 BP 128/62 09/26/22 04:35 Pulse Ox 100 09/26/22 04:35 O2 Del Method Room Air 09/25/22 15:50 Pain score (VAS): 310 I/O: Intake & Output 09/25/22 09/26/22 09/26/22 23:59 07:59 15:59 Intake Total 500 500 Output Total 200 950 Balance 300 -450 Post-procedural complaints: none Patient feedback: Patient satisfied with anesthetic care.
--- NOTE | 2022-09-26 10:20 | WPDANLDNPN2 ---
Anes-Prog Note L&D-Neuraxial Date/Time: 09/26/22 10:20 Neuraxial medications: intrathecal PF morphine Opiod-related complaints: none Patient feedback: Patient satisfied with post-operative pain management.
[2022-09-26 11:42] VITALS: BP 134/61; PULSE 77; RESP 18; TEMP 37.1; O2SAT 100
--- NOTE | 2022-09-26 15:05 | PC.NURSE ---
[id number] Introductions were made, then consulted with patient to assess needs related to . Mother led the conversation with her?plans to feed?her infant and the?experience so far. Resources provided for inpatient and outpatient services with the feeding sheet, mom/baby guide and name written on the white board. Mother voiced understanding of information and will call if there is a request for assistance. Reported to the primary RN. [phone] the Primary RN reported that the patient decided that wasn't going to work for her and she requested a bottle.
[2022-09-26 19:42] VITALS: BP 119/68; PULSE 74; RESP 16; TEMP 36.7; O2SAT 100
[2022-09-26] MEDS: FLUoxetine HCL 20 MG CAPSULE 60 MG PO (20:44)
[2022-09-26] MEDS: HYDROcodone/acetaminophen (*CRX) 5-325 MG TABLET 1 TAB PO (20:45)
--- NOTE | 2022-09-26 21:44 | PC.NURSE ---
Patient viewed the discharge video Mother & Baby Care, The First Two Weeks . Patient was given the opportunity and encouraged to ask questions. Patient verbalized understanding of information shared and has been given the mother/baby guide for home reference.
[2022-09-27] MEDS: HYDROcodone/acetaminophen (*CRX) 5-325 MG TABLET 1 TAB PO ×4 (03:15→16:24)
[2022-09-27] MEDS: SIMETHICONE 80 MG TAB.CHEW PO (03:16)
[2022-09-27 08:40] VITALS: BP 135/77; PULSE 80; RESP 16; TEMP 36.8; O2SAT 100
[2022-09-27] MEDS: DOCUSATE SODIUM 100 MG CAPSULE PO ×2 (08:42→16:24)
[2022-09-27] MEDS: POLYSACCHARIDE IRON COMPLEX 150 MG CAPSULE PO ×2 (08:42→16:24)
[2022-09-27] MEDS: IBUPROFEN 600 MG TABLET PO ×3 (08:42→22:05)
[2022-09-27] MEDS: MULTIVIT/MIN/PREN/FOL AC/IRON TABLET 1 TAB PO (08:42)
--- NOTE | 2022-09-27 11:12 | PM.OBPNVD ---
OB - PN: Subj Subjective Date/time seen: 09/27/22 11:12 Narrative: Pain OK. Tolerating diet. OB - PN: Obj Data Labs 09/26/22 05:11 OB - PN A/P Plan Comments: A: POD#2, doing well. P: Routine care. Plan home tomorrow. Exam Narrative: AVSS I/O OK ABD soft, nontender, fundus firm. Incision c/d/i. EXT nontender
[2022-09-27 18:45] VITALS: BP 136/73; PULSE 79; RESP 16; TEMP 37; O2SAT 100
[2022-09-27] MEDS: FLUoxetine HCL 20 MG CAPSULE 60 MG PO (22:05)
[2022-09-28] MEDS: IBUPROFEN 600 MG TABLET PO (05:35)
[2022-09-28 07:45] VITALS: BP 135/55; PULSE 88; RESP 16; TEMP 36.7; O2SAT 100
[2022-09-28] MEDS: POLYSACCHARIDE IRON COMPLEX 150 MG CAPSULE PO (07:46)
[2022-09-28] MEDS: DOCUSATE SODIUM 100 MG CAPSULE PO (07:46)
[2022-09-28] MEDS: HYDROcodone/acetaminophen (*CRX) 5-325 MG TABLET 1 TAB PO (07:46)
[2022-09-28] MEDS: MULTIVIT/MIN/PREN/FOL AC/IRON TABLET 1 TAB PO (07:46)
[2022-09-30 08:39] VITALS: BP 139/64; PULSE 72; RESP 20; TEMP 37.2; O2SAT 99
== END 2022-09-28 12:05 | disposition home or self-care (01) | DRG 785 ==
LOC: ANHLDR 09:57 → ANHOB2 16:51
PROVIDERS: Admitting Provider Obstetrics & Gynecology; Visit Provider Obstetrics & Gynecology
PROC: 10D00Z1 Extraction of Products of Conception, Low, Open Approach (ICD-10-PCS; CPT 59514; principal; 2022-09-25 12:00)
DX: O34.219 Maternal care for unspecified type scar from previous cesarean delivery (principal); O40.3XX0 Polyhydramnios, third trimester, not applicable or unspecified; O24.429 Gestational diabetes mellitus in childbirth, unspecified control; O99.824 Streptococcus B carrier state complicating childbirth; Z3A.37 37 weeks gestation of pregnancy; Z37.0 Single live birth; Z30.2 Encounter for sterilization
CPT/HCPCS: 36415; 82948; 85025; 85055; 86703; 88302; 88307; A9270; G0432; J0131; J0690; J1100; J1885; J2250; J2270; J2274; J2370; J2405; J2590; J2704; J3480; J7120

== ENCOUNTER 2023-11-26 09:41 | Outpatient (CLI) | payer BC, SELFPAY | END 2023-11-26 09:42 | disposition home or self-care (01) | LOC: ANHAUDASC 09:42 | PROVIDERS: PCP Family Medicine; Visit Provider Physician Assistant Medical | DX: H93.13 Tinnitus, bilateral (principal); H61.21 Impacted cerumen, right ear; H73.893 Other specified disorders of tympanic membrane, bilateral | CPT/HCPCS: 92557; 92567 ==

== ENCOUNTER 2025-01-27 10:59 | Outpatient (CLI) | payer BC, SELFPAY ==
--- NOTE | ~2025-01-27 | XR_ITS ---
XR knee LT 3V 01/27/2025 11:17 Indication: Left knee pain Procedure: 3 views left knee Comparison: No prior studies for comparison. Findings: No fracture, subluxation or dislocation. No joint effusion. There is anatomic alignment. Impression: 1: No significant bone or joint abnormality. Reviewed, dictated and finalized at location A. Impression: 1: No significant bone or joint abnormality.
--- OUTSIDE RECORDS SUMMARY | 2025-01-27 11:06 | XMS_ITS | Clinical Summary ---
Author Organization [facility] o[facility] Address [address] [place] [address] Care Team Providers Care Senior Training And Development Rep Name Role Phone Unknown, Notinfile Primary Care Provider Unavail able Allergies Active Allergy Reactions Criticality Noted Date Comments Penicillins Hives,Urticaria Medium 06/20/2016 rash rash rash Medications FLUoxetine (PROzac) 40 mg capsule TAKE 2 CAPSULES BY MOUTH ONCE DAILY, TAKE DAILY WITH 20 MG CAPSULE 12/14/2022 Active methocarbamoL (ROBAXIN) 500 mg tablet 02/26/2023 Active Active Problems Problem Noted Date Diagnosed Date Conductive hearing loss, bilateral 08/15/2021 Assessment & Plan (08/15/2021 6:17 PM DUPLEX TRIMMER): Tabby 60 mg one bid for 10 days. Watch hearing for complete loss, extreme pain, shooting pain, fluid from ear, blood from ear.etc. Do not pop ear. Avoid exposure from cold air. Bronchitis 07/09/2021 Assessment & Plan (07/09/2021 11:15 AM DUPLEX TRIMMER): Zpack with food. Mucinex DM 12 hour Push fluids Steamy shower Incentive Spirometry due 5 times a day Do 5 breaths per time, hold and try and get up to 1000.Please hold for the count of 5 slowly. Kenalog 40mg IM now. Sinusitis, acute 07/09/2021 Adiposity 06/19/2021 Assessment & Plan (06/19/2021 12:12 PM DUPLEX TRIMMER): Talked about options to weight loss Encouraged weight loss to her posture and problems with her back starting to sway. Talked about doing a food diary for 2 weeks. Anxiety 06/19/2021 Assessment & Plan (08/15/2021 6:13 PM DUPLEX TRIMMER): Will continue with Zoloft 100mg daily as established. Will add Klonopin 0.5mg bid PRN for excessive anxiety and panic. Medication reviewed with patient, all questions and concerns addressed. States understands. Assessment & Plan (07/09/2021 11:02 AM DUPLEX TRIMMER): Continue with medication as ordered. Try and reduce stress as much as possible. Takle a steamy hot bath. Assessment & Plan (06/19/2021 12:25 PM DUPLEX TRIMMER): Continue with Sertraline 100mg daily at HS.will refill, Note other provider has retired from practice. Continue on reducing stress, Exercise. 8 hours of quality sleep. Offered counseling if she was interested. Acute right flank pain 06/19/2021 Assessment & Plan (06/19/2021 12:30 PM DUPLEX TRIMMER): Urine dip done. NEGATIVE Encouraged to use Ibuprofen 400mg po every 8 hours with food PRN. Heating pad on low for 10-15 minutes 2-3 times a day. Avoid heavy lifting, nothing over 10 pounds. Watch posture. Do not sleep on your stomach. Immunizations Immunization Administration Dates Next Due Influenza, Quadrivalent, Spl it, Preservative Free, Intramuscular 03/18/2020,05/10/2018 Influenza, Trivalent, Preservative Free, Intramu scular 05/02/2017 Pfizer SARS-CoV-2 Monovalent Vaccination (12+ Yrs) PURPLE 06/17/2021 Rho (D) Immune Globulin, IV or IM 09/12/2017 Tdap 03/18/2020,09/18/2017 Social History Tobacco Use Types Packs/Day Years Used Date Smoking Tobacco: Never PHQ-2 Answer Date Recorded PHQ-2 Total Score 2 06/19/2021 Personal Safety Answer Date Recorded Getting School Help Needed Not on file 07/20 Comments Unknown Sex and Gender Information Value Date Recorded Sex Assigned at Not on file Legal Sex Female 11:15 AM DUPLEX TRIMMER Gender Identity Female 06/18/2021 8:47 AM DUPLEX TRIMMER Sexual Orientation Straight 06/18/2021 8: 47 AM DUPLEX TRIMMER Obstetrics History Last Filed Vital Signs Vital Sign Reading Time Taken Comments Blood Pressure 122/68 03/11/2023 5:58 PM CDT Pulse 77 03/11/2023 5:58 PM CDT Temperature 37.7 C (99.8 F) 03/11/2023 5:58 PM CDT Respiratory Rate 18 03/11/2023 5:58 PM CDT Oxygen Saturation 98% 03/11/2023 5:58 PM CDT Inhaled Oxygen Concentration - - Weight 101.2 kg (223 lb) 03/11/2023 5:58 PM CDT Height 154.9 cm (5' 1) 03/11/2023 5:58 PM CDT Body Mass Index 42.14 03/11/2023 5:58 PM CDT Plan of Treatment Health Maintenance Due Date Last Done Comments Cervical Cancer Screening 1986 Hepatitis C Screening 1986 Varicella Vaccines (1 of 2 - 13+ 2-dose series) 1999 Hepatitis B Screening 2004 Regular Well Visit/Exam 18-64 2004 HPV Vaccines (1 - 3-dose SCDM series) 2013 Depression Screening 06/19/2022 06/19/2021 Covid-19 Vaccine ( season) 2024 06/17/2021, 08/28/2020, 08/07/2020 Influenza Vaccine (#1) 2025 , 03/18/2020, 05/10/2018, Additional history exists DTaP/Tdap/Td Vaccine (3 - Td or Tdap) 03/18/2030 03/18/2020, 09/18/2017 Pneumococcal vaccine <65 Aged Out No longer eligible based on patient's age to complete this topic Insurance [facility] [place] Care Teams Senior Training And Development Rep Relationship Specialty Start Date End Date Unknown, Notinfile PCP - General 03/11/23
--- OUTSIDE RECORDS SUMMARY | 2025-01-27 11:06 | XMS_ITS | Referral Summary ---
Author Organization [facility] o[facility] Address [address] [place] [address] Care Team Providers Care Garment Alteration Examiner Name Role Phone Unknown, Notinfile Primary Care [...] 08/15/2021 Assessment & Plan (08/15/2021 6:17 PM HOSE WRAPPER): Tabby 60 mg one bid for 10 days. Watch hearing for complete loss, extreme pain, shooting pain, fluid from ear, blood from ear.etc. Do not pop ear. Avoid exposure from cold air. Bronchitis 07/09/2021 Assessment & Plan (07/09/2021 11:15 AM HOSE WRAPPER): Zpack with food. Mucinex DM 12 hour Push fluids Steamy shower Incentive Spirometry due 5 times a day Do 5 breaths per time, hold and try and get up to 1000.Please hold for the count of 5 slowly. Kenalog 40mg IM now. Sinusitis, acute 07/09/2021 Adiposity 06/19/2021 Assessment & Plan (06/19/2021 12:12 PM HOSE WRAPPER): Talked about options to weight loss Encouraged weight loss to her posture and problems with her back starting to sway. Talked about doing a food diary for 2 weeks. Anxiety 06/19/2021 Assessment & Plan (08/15/2021 6:13 PM HOSE WRAPPER): Will continue with Zoloft 100mg daily as established. Will add Klonopin 0.5mg bid PRN for excessive anxiety and panic. Medication reviewed with patient, all questions and concerns addressed. States understands. Assessment & Plan (07/09/2021 11:02 AM HOSE WRAPPER): Continue with medication as ordered. Try and reduce stress as much as possible. Takle a steamy hot bath. Assessment & Plan (06/19/2021 12:25 PM HOSE WRAPPER): Continue with Sertraline 100mg daily at HS.will refill, Note other provider has retired from practice. Continue on reducing stress, Exercise. 8 hours of quality sleep. Offered counseling if she was interested. Acute right flank pain 06/19/2021 Assessment & Plan (06/19/2021 12:30 PM HOSE WRAPPER): Urine dip done. NEGATIVE Encouraged to use [...] on file Legal Sex Female 11:15 AM HOSE WRAPPER Gender Identity Female 06/18/2021 8:47 AM HOSE WRAPPER Sexual Orientation Straight 06/18/2021 8: 47 AM HOSE WRAPPER Last Filed Vital Signs Vital Sign Reading [...] 03/11/2023 5:58 PM CDT Plan of Treatment Not on file Insurance [employer] [place] [employer] [place] [facility] Care Teams Garment Alteration Examiner Relationship Specialty Start Date End Date Unknown, Notinfile PCP - General 03/11/23
--- OUTSIDE RECORDS SUMMARY | 2025-01-27 11:06 | XMS_ITS | Clinical Summary ---
Author Organization [facility] [employer] Address [address] [place] [address] Care Team Providers Care Home Appliance Washing Machine Mechanic Name Role Phone Unknown, Provider Primary Care Provider Unavaila ble Source Comments [facility] [employer],non-owned Affiliates and Associated Physician Practices is amultiple site organization consisting of ambulatory clinics and hospital sitesin [place], [place], [place] and [place]. This disclosure is being madepursuant to the Care Everywhere program and may not contain all information available regarding this patient. 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 Gender Identity Not on file Sexual Orientation Not on file Plan of Treatment Health Maintenance Due Date Last Done Comments HIV SCREENING 2001 HEPATITIS C SCREENING 06/30/2004 DTAP/TDAP/TD VACCINES (1 - Tdap) 2005 HEPATITIS B VACCINE (1 of 3 - 19+ 3-dose series) 2005 HPV VACCINE (1 - 3-dose SCDM series) 2013 COVID-19 VACCINE (1 - 2023-2 5 season) 2024 DEPRESSION SCREENING 06/29/2024 INFLUENZA VACCINE (#1) 2025 ZOSTER VACCINE (1 of 2) 2036 HIB VACCINE Aged Out No longer eligi ble based on patient's age to complete this topic MENINGOCOCCAL (Group B) VACC INE SHARED DECISION-MAKING Aged Out No longer eligibl e based on patient's age to complete this topic MENINGOCOCCAL GROUPS A/C/Y/W VACCINE Aged Out No longer eligible b ased on patient's age to complete this topic PNEUMOCOCCAL VACCINE Aged Out No long er eligible based on patient's age to complete this topic [place] [address] [place] [address] [facility] Care Teams Home Appliance Washing Machine Mechanic Relationship Specialty Start Date End Date Unknown, Provider PCP - General 11/19/17
== END 2025-01-27 11:00 | disposition home or self-care (01) ==
PROVIDERS: PCP Family Medicine; Visit Provider Student in an Organized Health Care Education/Training Program
DX: M25.562 Pain in left knee (principal)
CPT/HCPCS: 73562

== ENCOUNTER 2025-03-21 09:55 | Emergency (ER) | payer OTHER, BC, SELFPAY ==
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
[2025-03-21 10:01] VITALS: BP 126/70; PULSE 81; RESP 16; TEMP 37; O2SAT 97
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
[2025-03-21] MEDS: KETOROLAC 30 MG/ML VIAL (*BKC) IM (10:26)
[2025-03-21] MEDS: CYCLOBENZAPRINE HCL 10 MG TABLET PO (10:27)
--- OUTSIDE RECORDS SUMMARY | 2025-03-21 10:47 | XMS_ITS | Clinical Summary ---
Author Organization [facility] o[facility] Address [address] [place] [address] Care Team Providers Care Skin Grader Name Role Phone Unknown, Notinfile Primary Care [...] 08/15/2021 Assessment & Plan (08/15/2021 6:17 PM SUEDING MACHINE OPERATOR): Tabby 60 mg one bid for 10 days. Watch hearing for complete loss, extreme pain, shooting pain, fluid from ear, blood from ear.etc. Do not pop ear. Avoid exposure from cold air. Bronchitis 07/09/2021 Assessment & Plan (07/09/2021 11:15 AM SUEDING MACHINE OPERATOR): Zpack with food. Mucinex DM 12 hour Push fluids Steamy shower Incentive Spirometry due 5 times a day Do 5 breaths per time, hold and try and get up to 1000.Please hold for the count of 5 slowly. Kenalog 40mg IM now. Sinusitis, acute 07/09/2021 Adiposity 06/19/2021 Assessment & Plan (06/19/2021 12:12 PM SUEDING MACHINE OPERATOR): Talked about options to weight loss Encouraged weight loss to her posture and problems with her back starting to sway. Talked about doing a food diary for 2 weeks. Anxiety 06/19/2021 Assessment & Plan (08/15/2021 6:13 PM SUEDING MACHINE OPERATOR): Will continue with Zoloft 100mg daily as established. Will add Klonopin 0.5mg bid PRN for excessive anxiety and panic. Medication reviewed with patient, all questions and concerns addressed. States understands. Assessment & Plan (07/09/2021 11:02 AM SUEDING MACHINE OPERATOR): Continue with medication as ordered. Try and reduce stress as much as possible. Takle a steamy hot bath. Assessment & Plan (06/19/2021 12:25 PM SUEDING MACHINE OPERATOR): Continue with Sertraline 100mg daily at HS.will refill, Note other provider has retired from practice. Continue on reducing stress, Exercise. 8 hours of quality sleep. Offered counseling if she was interested. Acute right flank pain 06/19/2021 Assessment & Plan (06/19/2021 12:30 PM SUEDING MACHINE OPERATOR): Urine dip done. NEGATIVE Encouraged to use [...] on file Legal Sex Female 11:15 AM SUEDING MACHINE OPERATOR Gender Identity Female 06/18/2021 8:47 AM SUEDING MACHINE OPERATOR Sexual Orientation Straight 06/18/2021 8: 47 AM SUEDING MACHINE OPERATOR Obstetrics History Last Filed Vital Signs Vital [...] Screening 06/19/2022 06/19/2021 Covid-19 Vaccine ( season) 2025 06/17/2021, 08/28/2020, 08/07/2020 Influenza Vaccine (#1) 2025 , 03/18/2020, 05/10/2018, Additional history exists DTaP/Tdap/Td Vaccine (3 - Td or Tdap) 03/18/2030 03/18/2020, 09/18/2017 Pneumococcal vaccine <65 Aged Out No longer eligible based on patient's age to complete this topic Insurance [facility] [place] Care Teams Skin Grader Relationship Specialty Start Date End Date Unknown, Notinfile PCP - General 03/11/23
--- OUTSIDE RECORDS SUMMARY | 2025-03-21 10:47 | XMS_ITS | Clinical Summary ---
Author Organization [facility] Address [address] [place] [address] Care Team Providers Care Tool Lathe Operator Name Role Phone Unknown, Provider Primary Care Provider Unavaila ble Source Comments [facility],non-owned Affiliates and Associated Physician Practices is amultiple site organization consisting of ambulatory clinics and hospital sitesin [place], [place] and [place]. This disclosure is being madepursuant to the Care Everywhere program and may not contain all information available regarding this patient. 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 Gender Identity Not on file Sexual Orientation Not on file Plan of Treatment Health Maintenance Due Date Last Done Comments HIV SCREENING 2001 HEPATITIS C SCREENING 06/30/2004 DTAP/TDAP/TD VACCINES (1 - Tdap) 2005 HEPATITIS B VACCINE (1 of 3 - 19+ 3-dose series) 2005 HPV VACCINE (1 - 3-dose SCDM series) 2013 DEPRESSION SCREENING 06/29/2024 COVID-19 VACCINE (1 - 2023-2 5 season) 2025 INFLUENZA VACCINE (#1) 2025 ZOSTER VACCINE (1 [...] patient's age to complete this topic Insurance [place] [address] [facility] Care Teams Tool Lathe Operator Relationship Specialty Start Date End Date Unknown, Provider PCP - General 11/19/17
[2025-03-21 10:59] VITALS: BP 129/82; PULSE 87; RESP 16; O2SAT 96
--- OUTSIDE RECORDS SUMMARY | 2025-03-21 11:39 | XMS_ITS | Clinical Summary ---
Author Organization [facility] Address [address] [place] [address] Care Team Providers Care Seo Expert Name Role Phone Unknown, Notinfile Primary Care [...] 08/15/2021 Assessment & Plan (08/15/2021 6:17 PM AEROSPACE MANAGER): Tabby 60 mg one bid for 10 days. Watch hearing for complete loss, extreme pain, shooting pain, fluid from ear, blood from ear.etc. Do not pop ear. Avoid exposure from cold air. Bronchitis 07/09/2021 Assessment & Plan (07/09/2021 11:15 AM AEROSPACE MANAGER): Zpack with food. Mucinex DM 12 hour Push fluids Steamy shower Incentive Spirometry due 5 times a day Do 5 breaths per time, hold and try and get up to 1000.Please hold for the count of 5 slowly. Kenalog 40mg IM now. Sinusitis, acute 07/09/2021 Adiposity 06/19/2021 Assessment & Plan (06/19/2021 12:12 PM AEROSPACE MANAGER): Talked about options to weight loss Encouraged weight loss to her posture and problems with her back starting to sway. Talked about doing a food diary for 2 weeks. Anxiety 06/19/2021 Assessment & Plan (08/15/2021 6:13 PM AEROSPACE MANAGER): Will continue with Zoloft 100mg daily as established. Will add Klonopin 0.5mg bid PRN for excessive anxiety and panic. Medication reviewed with patient, all questions and concerns addressed. States understands. Assessment & Plan (07/09/2021 11:02 AM AEROSPACE MANAGER): Continue with medication as ordered. Try and reduce stress as much as possible. Takle a steamy hot bath. Assessment & Plan (06/19/2021 12:25 PM AEROSPACE MANAGER): Continue with Sertraline 100mg daily at HS.will refill, Note other provider has retired from practice. Continue on reducing stress, Exercise. 8 hours of quality sleep. Offered counseling if she was interested. Acute right flank pain 06/19/2021 Assessment & Plan (06/19/2021 12:30 PM AEROSPACE MANAGER): Urine dip done. NEGATIVE Encouraged to use [...] on file Legal Sex Female 11:15 AM AEROSPACE MANAGER Gender Identity Female 06/18/2021 8:47 AM AEROSPACE MANAGER Sexual Orientation Straight 06/18/2021 8: 47 AM AEROSPACE MANAGER Obstetrics History Last Filed Vital Signs Vital [...] patient's age to complete this topic Insurance [facility] [place] Care Teams Seo Expert Relationship Specialty Start Date End Date Unknown, Notinfile PCP - General 03/11/23
--- OUTSIDE RECORDS SUMMARY | 2025-03-21 11:39 | XMS_ITS | Clinical Summary ---
Author Organization [facility] [employer] Address [address] [place] [address] Care Team Providers Care Aircraft Instrument Tester Name Role Phone Unknown, Provider Primary Care Provider Unavaila ble Source Comments [facility] [employer],non-owned Affiliates and Associated Physician Practices is amultiple site organization consisting of ambulatory clinics and hospital sitesin [place], [place], [place] and [place]. This disclosure is being madepursuant to the Care Everywhere program and may not contain all information available regarding this patient. Last updated 18.[facility] 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
== END 2025-03-21 11:01 | disposition home or self-care (01) ==
LOC: ANHED 10:51
PROVIDERS: Emergency Provider Nurse Practitioner Family; PCP Family Medicine
DX: S16.1XXA Strain of muscle, fascia and tendon at neck level, initial encounter (principal); V49.40XA Driver injured in collision with unspecified motor vehicles in traffic accident, initial encounter
CPT/HCPCS: 72125; 96372; 99284; A9270; J1885; L0140

== ENCOUNTER 2025-04-28 15:18 | Outpatient (CLI) | payer BC, SELFPAY ==
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
--- OUTSIDE RECORDS SUMMARY | 2025-04-28 15:23 | XMS_ITS | Clinical Summary ---
Author Organization [facility] [employer] [facility] Address [address] [place] [address] Care Team Providers Care Mill Set Up Name Role Phone Unknown, Provider Primary Care Provider Unavaila ble Source Comments [facility] [employer],non-owned Affiliates and Associated Physician Practices is amultiple site organization consisting of ambulatory clinics and hospital sitesin [place], [place], [place] and [place]. This disclosure is being madepursuant to the Care Everywhere program and may not contain all information available regarding this patient. 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
--- OUTSIDE RECORDS SUMMARY | 2025-04-28 15:23 | XMS_ITS | Clinical Summary ---
Author Organization [facility] Address [address] [place] [address] Care Team Providers Care Pack Operator Name Role Phone Unknown, Notinfile Primary Care [...] 08/15/2021 Assessment & Plan (08/15/2021 6:17 PM WATER QUALITY SPECIALIST): Tabby 60 mg one bid for 10 days. Watch hearing for complete loss, extreme pain, shooting pain, fluid from ear, blood from ear.etc. Do not pop ear. Avoid exposure from cold air. Bronchitis 07/09/2021 Assessment & Plan (07/09/2021 11:15 AM WATER QUALITY SPECIALIST): Zpack with food. Mucinex DM 12 hour Push fluids Steamy shower Incentive Spirometry due 5 times a day Do 5 breaths per time, hold and try and get up to 1000.Please hold for the count of 5 slowly. Kenalog 40mg IM now. Sinusitis, acute 07/09/2021 Adiposity 06/19/2021 Assessment & Plan (06/19/2021 12:12 PM WATER QUALITY SPECIALIST): Talked about options to weight loss Encouraged weight loss to her posture and problems with her back starting to sway. Talked about doing a food diary for 2 weeks. Anxiety 06/19/2021 Assessment & Plan (08/15/2021 6:13 PM WATER QUALITY SPECIALIST): Will continue with Zoloft 100mg daily as established. Will add Klonopin 0.5mg bid PRN for excessive anxiety and panic. Medication reviewed with patient, all questions and concerns addressed. States understands. Assessment & Plan (07/09/2021 11:02 AM WATER QUALITY SPECIALIST): Continue with medication as ordered. Try and reduce stress as much as possible. Takle a steamy hot bath. Assessment & Plan (06/19/2021 12:25 PM WATER QUALITY SPECIALIST): Continue with Sertraline 100mg daily at HS.will refill, Note other provider has retired from practice. Continue on reducing stress, Exercise. 8 hours of quality sleep. Offered counseling if she was interested. Acute right flank pain 06/19/2021 Assessment & Plan (06/19/2021 12:30 PM WATER QUALITY SPECIALIST): Urine dip done. NEGATIVE Encouraged to use [...] on file Legal Sex Female 11:15 AM WATER QUALITY SPECIALIST Gender Identity Female 06/18/2021 8:47 AM WATER QUALITY SPECIALIST Sexual Orientation Straight 06/18/2021 8: 47 AM WATER QUALITY SPECIALIST Obstetrics History Last Filed Vital Signs Vital [...] patient's age to complete this topic Insurance [facility] BLUE ACCESS [place] BLUE ACCESS [place] Care Teams Pack Operator Relationship Specialty Start Date End Date Unknown, Notinfile PCP - General 03/11/23
== END 2025-04-28 15:19 | disposition home or self-care (01) ==
LOC: ANHLAB 15:21
PROVIDERS: PCP Family Medicine Adolescent Medicine; Visit Provider Student in an Organized Health Care Education/Training Program
DX: M25.512 Pain in left shoulder (principal)
CPT/HCPCS: 73030